=== PATIENT | female | born 1990 | race Caucasian/White ===

== ENCOUNTER 2018-02-04 01:15 | Emergency (ER) | payer BC, OTHER ==
[2018-02-04 01:25] VITALS: RESP 18
[2018-02-04] MEDS ORDERED: SULFAMETH-TMP DS STARTER PACK 2 TAB BTL PO STA (01:39)
[2018-02-04] MEDS ORDERED: CEPHALEXIN 500MG STARTER PACK 4 CAP BTL PO STA (01:39)
[2018-02-04] MEDS ORDERED: ACET/COD 300 MG/30 MG STARTER PACK 6 TAB BTL PO STA (01:39)
--- NOTE | 2018-02-04 02:18 | ED ---
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 She reports that it hurts to sit and the area of erythema is spreading on her thigh. She denies history of resistent bacterial infections. Patient has not been shaving her thigh, but has shaved her axilla. Denies fevers, chills, chest pain, SOB. - Related Data Home Medications Medication Instructions Recorded Confirmed ALPRAZolam [Xanax] 0.25 mg PO Q8HR PRN 12/05/14 04/14/15 Previous Rx's Medication Instructions Recorded Acetaminophen-Codeine 300-30mg 1 tab PO Q4H PRN #15 tablet 02/04/18 [Tylenol #3] Cephalexin [Keflex] 500 mg PO Q6HR #40 cap 02/04/18 Ibuprofen [Motrin] 600 mg PO Q8HR PRN #20 tab 02/04/18 Sulfamethox-Tmp 800-160Mg [Bactrim 2 tab PO Q12HR #40 tab 02/04/18 DS 800-160 mg] Allergies Allergy/AdvReac Type Severity Reaction Status Date / Time No Known Allergies Allergy Verified 04/14/15 02:04 Review of Systems ROS Statement: Those systems with pertinent positive or pertinent negative responses have been documented in the HPI. ROS Other: All systems not noted in ROS Statement are negative. Past Medical History Past Medical History: No Reported History Additional Past Medical History / Comment(s): MULT MOLLUSCUM CONTAGIOSUM TO VAGINAL AREA. NO MENSES SINCE CHILDBIRTH, DEPO INJ 02/2013. History of Any Multi-Drug Resistant Organisms: None Reported Past Surgical History: Adenoidectomy, Cholecystectomy, Orthopedic Surgery, Tonsillectomy Additional Past Surgical History / Comment(s): BMT; EXC LT BUNION; WISDOM TEETH REMOVED; COLONOSCOPY/EGD Past Anesthesia/Blood Transfusion Reactions: No Reported Reaction Past Psychological History: Anxiety, Depression Smoking Status: Former smoker Past Alcohol Use History: None Reported Past Drug Use History: None Reported General Exam - General Exam Comments Initial Comments: This is a 28 year old female, no distress. Limitations: no limitations General appearance: alert, in no apparent distress Head exam: Present: atraumatic, normocephalic, normal inspection Eye exam: Present: normal appearance, PERRL, EOMI. Absent: scleral icterus, conjunctival injection, periorbital swelling ENT exam: Present: normal exam, mucous membranes moist Neck exam: Present: normal inspection. Absent: tenderness, meningismus, lymphadenopathy Respiratory exam: Present: normal lung sounds bilaterally. Absent: respiratory distress, wheezes, rales, rhonchi, stridor Cardiovascular Exam: Present: regular rate, normal rhythm, normal heart sounds. Absent: systolic murmur, diastolic murmur, rubs, gallop, clicks Neurological exam: Present: alert, oriented X3, CN II-XII intact Psychiatric exam: Present: normal affect, normal mood Skin exam: Present: warm, dry, intact, normal color, erythema (Patient has a 10 cm area of cellulitis over posterior thigh with central swelling consistent with abscess. Patient has 3 cm area of erythema and swelling in right axilla. ) . Absent: rash Course Vital Signs 02/04/18 02/04/18 01:18 02:32 Temperature 99.0 F 98.7 F Pulse Rate 96 86 Respiratory 18 18 Rate Blood Pressure 124/65 116/57 O2 Sat by Pulse 100 98 Oximetry Procedures - Incision & Drainage Time Out Performed?: Yes Indication: abscess Site: lower extremity (right posterior thigh. 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 She reports that it hurts to sit and the area of erythema is spreading on her thigh. Patient has evdiecn of right thigh cellulitis with abscess, and right axilla abscess. I was able to I and D both axilla and thigh. Cultures obtained from each site. I was able to pack thigh abscess as the wound was deep. Will start on keflex and bactrim. Discussed packing needs to be changed in 2 days with referral to surgeon. All questions answered and return parameters discussed. Disposition Clinical Impression: Abscess of right axilla, Abscess of right thigh Disposition: HOME SELF-CARE Condition: Good Instructions: Abscess (ED) Additional Instructions: Patient advised to do warm compresses or soaks over the area. Patient should follow-up with primary care provider or the urgent care or primary care provider 's office in 2 days to have the packing reassessed. Further complications arise is worsening redness or swelling despite antibiotics patient should return to the emergency department. Patient is to have the packing removed and likely replaced in 2 days. Return to the emergency department if any alarming signs or symptoms occur. Prescriptions: Acetaminophen-Codeine 300-30mg [Tylenol #3] 1 tab PO Q4H PRN #15 tablet PRN Reason: Pain Cephalexin [Keflex] 500 mg PO Q6HR #40 cap Ibuprofen [Motrin] 600 mg PO Q8HR PRN #20 tab PRN Reason: Pain Sulfamethox-Tmp 800-160Mg [Bactrim DS 800-160 mg] 2 tab PO Q12HR #40 tab Referrals: Isidro Corcoran DO [Primary Care Provider] - 1-2 days Antonio Gonzalez MD [Medical Doctor] - 1-2 days Time of Disposition: 02:16
[2018-02-04 02:34] VITALS: BP 116/57; PULSE 86; TEMP 98.7
== END 2018-02-04 02:34 | disposition home or self-care (01) ==
LOC: EC 01:15
DX: L02.415 Cutaneous abscess of right lower limb (principal); L02.411 Cutaneous abscess of right axilla; Z87.891 Personal history of nicotine dependence
CPT/HCPCS: 10061; 87070; 87077; 87186; 87205; 99285

== ENCOUNTER 2018-02-06 16:10 | Emergency (ER) | payer OTHER ==
--- NOTE | 2018-02-06 17:22 | ED ---
General Adult HPI - General Chief complaint: Skin/Abscess/Foreign Body Stated complaint: Wound on leg Time Seen by Provider: 02/06/18 17:18 Source: patient, RN notes reviewed Mode of arrival: ambulatory Limitations: no limitations - History of Present Illness Initial comments: 28 year old female presents to the emergency department for a chief complaint of abscess in the right dorsal thigh. Patient states she presented to the emergency department about 3 days ago and had it drained and packed. She was started on Keflex and Bactrim. Patient then presented to primary care provider yesterday who repacked the wound. Patient states that today she was pulling off the gauze when it's night on the packing and pulled out about 3 cm of packing. Patient states it was extremely painful to pack and she does not want to have to repack it if she doesn't have to. Patient states she is going to primary care tomorrow to have a repacked at that time and would like to wait until then to repack it. Patient is still taking antibiotics as directed and states the infection and redness is receding. Patient denies any recent spreading of infection. Patient states she is also getting nauseous from the Keflex and wonders if there is anything she can have that would take alleviate her nausea. Patient denies any fevers or chills. She denies any pain in the hip or knee of the right extremity. - Related Data Home Medications Medication Instructions Recorded Confirmed ALPRAZolam [Xanax] 0.25 mg PO Q8HR PRN 12/05/14 04/14/15 Previous Rx's Medication Instructions Recorded Acetaminophen-Codeine 300-30mg 1 tab PO Q4H PRN #15 tablet 02/04/18 [Tylenol #3] Cephalexin [Keflex] 500 mg PO Q6HR #40 cap 02/04/18 Ibuprofen [Motrin] 600 mg PO Q8HR PRN #20 tab 02/04/18 Sulfamethox-Tmp 800-160Mg [Bactrim 2 tab PO Q12HR #40 tab 02/04/18 DS 800-160 mg] Ondansetron HCl [Zofran] 4 mg PO Q8HR PRN #14 tablet 02/06/18 Allergies Allergy/AdvReac Type Severity Reaction Status Date / Time No Known Allergies Allergy Verified 04/14/15 02:04 Review of Systems ROS Statement: Those systems with pertinent positive or pertinent negative responses have been documented in the HPI. ROS Other: All systems not noted in ROS Statement are negative. Past Medical History Past Medical History: No Reported History Additional Past Medical History / Comment(s): MULT MOLLUSCUM CONTAGIOSUM TO VAGINAL AREA. NO MENSES SINCE CHILDBIRTH, DEPO INJ 02/2013. History of Any Multi-Drug Resistant Organisms: MRSA Date of last positivie culture/infection: 02/04/18 MDRO Source:: thigh,axillary Past Surgical History: Adenoidectomy, Cholecystectomy, Orthopedic Surgery, Tonsillectomy Additional Past Surgical History / Comment(s): BMT; EXC LT BUNION; WISDOM TEETH REMOVED; COLONOSCOPY/EGD Past Anesthesia/Blood Transfusion Reactions: No Reported Reaction Past Psychological History: Anxiety, Depression Smoking Status: Former smoker Past Alcohol Use History: None Reported Past Drug Use History: None Reported General Exam Limitations: no limitations Respiratory exam: Present: normal lung sounds bilaterally. Absent: respiratory distress, wheezes, rales, rhonchi, stridor Cardiovascular Exam: Present: regular rate, normal rhythm, normal heart sounds. Absent: systolic murmur, diastolic murmur, rubs, gallop, clicks Extremities exam: Present: full ROM, tenderness (Tenderness to the abscess on the right dorsal thigh), normal capillary refill (Cap refill less than 2 seconds in lower extremities bilaterally.), other (By mouth pulse 2+ in the lower extremities bilaterally. Abscess appears to be draining. There is about 3 cm of packing hanging out of the wound. Patient has a black marker iroquois around where the redness previously wasn't has greatly reduced in size. There is no streaking redness up the leg or down the leg.). Absent: pedal edema, joint swelling, calf tenderness Course Vital Signs 02/06/18 02/06/18 16:33 17:28 Temperature 98.6 F 97.9 F Pulse Rate 99 66 Respiratory 18 16 Rate Blood Pressure 131/61 125/69 O2 Sat by Pulse 99 98 Oximetry Medical Decision Making - Medical Decision Making 28-year-old female says the emergency department for chief complaint of abscess. She had it drained about 4 days ago in the emergency department and packed. Patient followed up with primary care provider Dr. Smith who repacked it yesterday. I offered patient to remove the packing today and repacking in the emergency department. Patient states it was extremely painful to pack and she does not want repacked today as she is going back to primary care to have it repacked tomorrow. She would like to get 2 days out of the packing inside of 1 as her primary care provider told her she could do. I offered patient to either remove the packing or just trim the excess 2-3 cm of packing. Patient opted to have the packing trimmed at this point. She did not want the packing removed as she said it will be painful. Patient denies noticing any increased swelling or spreading redness. There is a iroquois around where the redness was previously and the redness is greatly reduced. Patient states she would like to follow up with her primary care provider for this problem. Patient is to return to the emergency Department if she has any worsening symptoms or increased infection. She is to return if she has high fevers. Patient is to continue taking antibiotics. She was prescribed Zofran because they're making her nauseous. Disposition Clinical Impression: Abscess Disposition: HOME SELF-CARE Condition: Good Instructions: Abscess (ED) Additional Instructions: Please continue antibiotics previously prescribed. Please follow up with primary care provider either tomorrow or the next day. Please return to the emergency department if you notice spreading redness or worsening infection. Prescriptions: Ondansetron HCl [Zofran] 4 mg PO Q8HR PRN #14 tablet PRN Reason: Nausea Referrals: Isidro Corcoran DO [Primary Care Provider] - 1-2 days Time of Disposition: 17:21
[2018-02-06 17:30] VITALS: BP 125/69; PULSE 66; RESP 16; TEMP 97.9
== END 2018-02-06 17:28 | disposition home or self-care (01) ==
LOC: EC 16:10
DX: L02.415 Cutaneous abscess of right lower limb (principal); Z86.14 Personal history of Methicillin resistant Staphylococcus aureus infection; Z87.891 Personal history of nicotine dependence
CPT/HCPCS: 99282

== ENCOUNTER 2018-06-08 02:43 | Emergency (ER) | payer OTHER ==
[2018-06-08 03:05] VITALS: BP 111/73; PULSE 70; RESP 18; TEMP 98.4
[2018-06-08] MEDS ORDERED: KETOROLAC 30 MG/ML 1 ML VIAL IM STA (03:33)
[2018-06-08] MEDS ORDERED: CEPHALEXIN 500MG STARTER PACK 4 CAP BTL PO STA (03:33)
[2018-06-08] MEDS ORDERED: SULFAMETH-TMP DS STARTER PACK 2 TAB BTL PO STA (03:33)
[2018-06-08] MEDS ORDERED: ACET/COD 300 MG/30 MG STARTER PACK 6 TAB BTL PO STA (03:33)
--- NOTE | 2018-06-08 03:33 | ED ---
Skin/Abscess/FB HPI - General Chief complaint: Skin/Abscess/Foreign Body Stated complaint: abscess on arm Time Seen by Provider: 06/08/18 03:23 Source: patient Mode of arrival: ambulatory Limitations: no limitations - History of Present Illness Initial comments: 28-year-old female patient presents to emergency department today for evaluation of abscess to the left axilla. Patient states that the abscess started to develop approximately 2 weeks ago. Patient states that over the last couple of days the area has become much more painful, swollen, and started to become red around the site. Patient states that she does have a history of abscess with positive MRSA culture. Patient denies any fevers, chills, nausea, vomiting. Denies any difficulty with range of motion to the shoulder or elbow. Patient denies any alcohol or drug use. Denies any significant past medical history. Patient denies any recent rash, shortness breath, chest pain, abdominal pain, diarrhea, constipation, back pain, numbness, tingling, dizziness , weakness, hematuria, dysuria, urinary urgency, urinary frequency, headache, visual changes, or any other complaints. - Related Data Previous Rx's Medication Instructions Recorded Cephalexin [Keflex] 500 mg PO Q6H #40 cap 06/08/18 Ibuprofen [Motrin] 600 mg PO Q8HR PRN #30 tab 06/08/18 Sulfamethoxazole/Trimethoprim 1 each PO BID #20 tablet 06/08/18 [Bactrim DS 800-160 mg] Allergies Allergy/AdvReac Type Severity Reaction Status Date / Time No Known Allergies Allergy Verified 03/07/18 23:21 Review of Systems ROS Statement: Those systems with pertinent positive or pertinent negative responses have been documented in the HPI. ROS Other: All systems not noted in ROS Statement are negative. Past Medical History Past Medical History: No Reported History Additional Past Medical History / Comment(s): MULT MOLLUSCUM CONTAGIOSUM TO VAGINAL AREA. NO MENSES SINCE CHILDBIRTH, DEPO INJ 02/2013. History of Any Multi-Drug Resistant Organisms: MRSA Date of last positivie culture/infection: 02/04/18 MDRO Source:: thigh,axillary Past Surgical History: Adenoidectomy, Cholecystectomy, Orthopedic Surgery, Tonsillectomy Additional Past Surgical History / Comment(s): BMT; EXC LT BUNION; WISDOM TEETH REMOVED; COLONOSCOPY/EGD Past Anesthesia/Blood Transfusion Reactions: No Reported Reaction Past Psychological History: Anxiety, Depression Smoking Status: Former smoker Past Alcohol Use History: None Reported Past Drug Use History: None Reported General Exam Limitations: no limitations General appearance: alert, in no apparent distress, other (This is a well- developed, well-nourished adult female patient in no acute distress. Vital signs upon presentation are temperature 98.4F, pulse 70, respirations 18, blood pressure 111/73, pulse ox 99% on room air.) Eye exam: Present: normal appearance, PERRL, EOMI. Absent: scleral icterus, conjunctival injection, periorbital swelling ENT exam: Present: normal exam, normal oropharynx, mucous membranes moist Respiratory exam: Present: normal lung sounds bilaterally. Absent: respiratory distress, wheezes, rales, rhonchi, stridor Cardiovascular Exam: Present: regular rate, normal rhythm, normal heart sounds. Absent: systolic murmur, diastolic murmur, rubs, gallop, clicks Extremities exam: Present: full ROM, tenderness (Left axillary), normal capillary refill, other (Patient has 2cm x 2cm abscess to the left axilla. There is small area of fluctuance with surrounding induration. There is central opening with drainage of purulent bloody drainage. There is surrounding cellulitis extending up the medial aspect of the upper arm. ). Absent: normal inspection, pedal edema, joint swelling, calf tenderness Neurological exam: Present: alert, oriented X3, CN II-XII intact Psychiatric exam: Present: normal affect, normal mood Skin exam: Present: warm, dry, intact, normal color. Absent: rash Course Vital Signs 06/08/18 03:02 Temperature 98.4 F Pulse Rate 70 Respiratory 18 Rate Blood Pressure 111/73 O2 Sat by Pulse 99 Oximetry Medical Decision Making - Medical Decision Making 28-year-old female patient presents to the emergency department today for evaluation of abscess to the left axillary region. Physical examination did reveal a 2 cm x 2 cm abscess that is draining purulent, bloody drainage. She did squeeze out a large amount. Fluid. Patient tolerated this well. Culture has been sent. She will be placed on Bactrim and Keflex. She is given ibuprofen for pain control. She is given a starter pack Tylenol codeine. She is instructed to apply warm compresses 20 minutes at a time as often as possible. She is instructed to follow-up with her primary care physician for recheck of the abscess in 1-2 days. Return parameters were discussed in detail. She verbalizes understanding and agreed with this plan. Disposition Clinical Impression: Abscess of left axilla Disposition: HOME SELF-CARE Condition: Good Instructions: Abscess (ED) Additional Instructions: Apply warm compresses, 20 minutes per hour. Complete antibiotic prescription in full. Take other medications as directed. Return here immediately for any new, worsening, or concerning symptoms. Prescriptions: Cephalexin [Keflex] 500 mg PO Q6H #40 cap Ibuprofen [Motrin] 600 mg PO Q8HR PRN #30 tab PRN Reason: Pain Sulfamethoxazole/Trimethoprim [Bactrim DS 800-160 mg] 1 each PO BID #20 tablet Is patient prescribed a controlled substance at d/c from ED?: No Referrals: Isidro Corcoran DO [Primary Care Provider] - 1-2 days Time of Disposition: 03:33
== END 2018-06-08 04:08 | disposition home or self-care (01) ==
LOC: EC 02:43
DX: L02.412 Cutaneous abscess of left axilla (principal); Z86.14 Personal history of Methicillin resistant Staphylococcus aureus infection; Z87.891 Personal history of nicotine dependence
CPT/HCPCS: 87070; 87205; 99283; 96372; J1885; 87077; 87186

== ENCOUNTER 2020-05-16 18:32 | Outpatient (CLI) | payer MEDICAID ==
[2020-05-16 19:25] VITALS: BP 119/66; PULSE 96; RESP 16; TEMP 97.2
--- NOTE | 2020-06-06 12:38 | P.MSEPDOC ---
Presenting Problems - Arrival Data Date of Arrival on Unit: 05/16/20 Time of Arrival on Unit: 18:33 Mode of Transport: Ambulatory - Complaint OB-Reason for Admission/Chief Complaint: Other Comment: cramping, spotting x1, decreased fm Medical History - Information : 2 Para: 1 Term: 0 : 0 Abortions: Spontaneous or Elective: 0 Number of Living Children: 1 - Gestational Age Gestational Age by TRINIDAD (wks/days): 27 Weeks and 5 Days Review of Systems - Review of Systems Constitutional: No problems Breast: No problems ENT: No problems Cardiovascular: No problems Respiratory: No problems Gastrointestinal: No problems Genitourinary: No problems Musculoskeletal: No problems Neurological: No problems Skin: No problems Vital Signs - Temperature Temperature: 97.2 F Temperature Source: Temporal Artery Scan - Pulse Right Apical Pulse Rate: 96 Pulse Assessment Method: Automatic Cuff - Respirations Respiratory Rate: 16 Oxygen Delivery Method: Room Air - Blood Pressure Right Arm Blood Pressure: 119/66 Blood Pressure Mean: 83 Blood Pressure Source: Automatic Cuff Medical Screen Scoring (Pre) - Cervical Exam Dilation: 0 cm = 0 Membranes: Intact - Uterine Contractions Frequency: N/A Duration: N/A Intensity: N/A - Maternal Vital Signs Maternal Temperature: N/A Maternal Blood Pressure: N/A Signs of Preeclampsia: N/A Maternal Respirations: N/A - Maternal Trauma Maternal Trauma: N/A - Assessment - Baby A Baseline FHR: 135 Heart Rate - NICHD Category: Category I (Normal) = 0 NST: Reactive Position: N/A Station: N/A - Total Score - Baby A Total Score - Baby A: 0 - Total Score - Baby B Total Score - Baby B: 0 - Total Score - Baby C Total Score - Baby C: 0 - Level of Risk - Baby A Level of Risk - Baby A: Low (0-5) - Level of Risk - Baby B Level of Risk - Baby B: Low (0-5) - Level of Risk - Baby C Level of Risk - Baby C: Low (0-5) Physician Notification (Pre) - Physician Notified Physician Notified Date: 05/16/20 Physician Notified Time: 18:49 New Order Received: Yes - Notification Comment Comment: reported visit. order for spec/vag exam, no blood noted, reactive nst, no contractions, pt may be dc'd home Disposition - Disposition OB Disposition: Discharge to home Discharge Date: 05/16/20 Discharge Time: 19:15 I agree with the RN Medical Screening Exam: Yes Risk & Benefit of care provided described in d/c instruction: Yes Diagnosis: DECREASED MOVEMENTS, SECOND TRIMESTER, FETUS 1
== END 2020-05-16 19:15 | disposition home or self-care (01) ==
LOC: FBPOP 18:32
PROVIDERS: ATTEND Obstetrics & Gynecology Obstetrics
DX: O36.8120 Decreased fetal movements, second trimester, not applicable or unspecified (principal); Z3A.27 27 weeks gestation of pregnancy
CPT/HCPCS: 99213

== ENCOUNTER 2020-06-11 22:05 | Outpatient (CLI) | payer MEDICAID ==
[2020-06-12 00:13] VITALS: BP 116/57; PULSE 87; RESP 16; TEMP 97.6
--- NOTE | 2020-06-30 08:36 | P.MSEPDOC ---
Presenting Problems - Arrival Data Date of Arrival on Unit: 06/12/20 Time of Arrival on Unit: 22:04 Mode of Transport: Ambulatory - Complaint OB-Reason for Admission/Chief Complaint: Pain Comment: Patient presents to triage with complaint of constant pain in the right groin,. unrelieved by position changes. Patient also states she has not felt the baby move since. 7am. Medical History - Information : 2 Para: 1 Term: 1 : 0 Abortions: Spontaneous or Elective: 0 Number of Living Children: 1 - Gestational Age Gestational Age by TRINIDAD (wks/days): 31 Weeks and 4 Days Review of Systems - Review of Systems Constitutional: No problems Breast: No problems ENT: No problems Cardiovascular: No problems Respiratory: No problems Gastrointestinal: No problems Genitourinary: No problems Musculoskeletal: No problems Neurological: No problems Skin: No problems Vital Signs - Temperature Temperature: 97.6 F Temperature Source: Temporal Artery Scan - Pulse Right Brachial Pulse Rate: 87 Pulse Assessment Method: Automatic Cuff - Respirations Respiratory Rate: 16 Oxygen Delivery Method: Room Air - Blood Pressure Right Arm Blood Pressure: 116/57 Blood Pressure Mean: 76 Blood Pressure Source: Automatic Cuff Medical Screen Scoring (Pre) - Cervical Exam Dilation: Exam Deferred Effacement: Exam Deferred Membranes: Intact - Uterine Contractions Frequency: N/A Duration: N/A Intensity: N/A - Maternal Vital Signs Maternal Temperature: N/A Maternal Blood Pressure: N/A Signs of Preeclampsia: N/A Maternal Respirations: N/A - Maternal Trauma Maternal Trauma: N/A - Assessment - Baby A Baseline FHR: 135 Heart Rate - NICHD Category: Category I (Normal) = 0 NST: Reactive Position: N/A Station: N/A - Total Score - Baby A Total Score - Baby A: 0 - Total Score - Baby B Total Score - Baby B: 0 - Total Score - Baby C Total Score - Baby C: 0 - Level of Risk - Baby A Level of Risk - Baby A: Low (0-5) - Level of Risk - Baby B Level of Risk - Baby B: Low (0-5) - Level of Risk - Baby C Level of Risk - Baby C: Low (0-5) Physician Notification (Pre) - Physician Notified Physician Notified Date: 06/12/20 Physician Notified Time: 22:40 New Order Received: Yes - Notification Comment Comment: Dr. Bell at bedside. RN reported patients symptoms and reviewed . heart tone tracing. palpated patients groin and stated that the patient was having. pelvic bone pain that is normal during , especially during the third trimester. stated patient could use hot or cold packs to alleviate the pain. RN brought patient. a heat pack to try. Patient verbalized understanding. Patient to be discharged per Dr. Bell. Disposition - Disposition OB Disposition: Discharge to home Discharge Date: 06/12/20 Discharge Time: 23:10 I agree with the RN Medical Screening Exam: Yes Risk & Benefit of care provided described in d/c instruction: Yes Diagnosis: pubic symphasis separation in pregancy
== END 2020-06-11 23:10 | disposition home or self-care (01) ==
LOC: FBPOP 22:05
PROVIDERS: ATTEND Obstetrics & Gynecology
DX: O71.6 Obstetric damage to pelvic joints and ligaments (principal); Z3A.31 31 weeks gestation of pregnancy
CPT/HCPCS: 59025; 99213

== ENCOUNTER 2020-07-26 02:50 | Outpatient (CLI) | payer MEDICAID ==
[2020-07-26 04:51] VITALS: BP 123/65; PULSE 77; RESP 16; TEMP 97.2
--- NOTE | 2020-07-27 09:02 | P.MSEPDOC ---
Presenting Problems - Arrival Data Date of Arrival on Unit: 07/26/20 Time of Arrival on Unit: 02:50 Mode of Transport: Wheelchair - Complaint OB-Reason for Admission/Chief Complaint: Possible Onset of Labor, Rule Out SROM, Other Comment: L leg pain Medical History - Information : 2 Para: 1 Term: 1 : 0 Abortions: Spontaneous or Elective: 0 Number of Living Children: 1 - Gestational Age Gestational Age by TRINIDAD (wks/days): 37 Weeks and 6 Days Review of Systems - Review of Systems Constitutional: No problems Breast: No problems ENT: No problems Cardiovascular: No problems Respiratory: No problems Gastrointestinal: No problems Genitourinary: No problems Musculoskeletal: No problems Neurological: No problems Skin: No problems Comment: L leg pain Vital Signs - Temperature Temperature: 97.2 F Temperature Source: Temporal Artery Scan - Pulse Right Pulse Rate: 77 Pulse Assessment Method: Automatic Cuff - Respirations Respiratory Rate: 16 Oxygen Delivery Method: Room Air O2 Sat by Pulse Oximetry: 99 - Blood Pressure Right Arm Blood Pressure: 123/65 Blood Pressure Mean: 84 Medical Screen Scoring (Pre) - Cervical Exam Dilation: 1-3 cm = 1 Membranes: Intact - Uterine Contractions Frequency: > 5 minutes apart = 1 Duration: > 40 seconds = 2 Intensity: N/A - Maternal Vital Signs Maternal Temperature: N/A Maternal Blood Pressure: N/A Signs of Preeclampsia: N/A Maternal Respirations: N/A - Maternal Trauma Maternal Trauma: N/A - Assessment - Baby A Baseline FHR: 135 Heart Rate - NICHD Category: Category I (Normal) = 0 NST: Reactive Position: N/A Station: N/A - Total Score - Baby A Total Score - Baby A: 4 - Total Score - Baby B Total Score - Baby B: 4 - Total Score - Baby C Total Score - Baby C: 4 - Level of Risk - Baby A Level of Risk - Baby A: Low (0-5) - Level of Risk - Baby B Level of Risk - Baby B: Low (0-5) - Level of Risk - Baby C Level of Risk - Baby C: Low (0-5) Physician Notification (Pre) - Physician Notified Physician Notified Date: 07/26/20 Physician Notified Time: 04:07 New Order Received: Yes - Notification Comment Comment: DC home with follow up in office this afternoon, see OBIX Disposition - Disposition OB Disposition: Physician follow up in office, Discharge to home, Written follow up instructions reviewed Discharge Date: 07/26/20 Discharge Time: 04:15 I agree with the RN Medical Screening Exam: Yes Risk & Benefit of care provided described in d/c instruction: Yes Diagnosis: FALSE LABOR BEFORE 37 COMPLETED WEEKS OF GEST, THIRD TRI
== END 2020-07-26 04:15 | disposition home or self-care (01) ==
LOC: FBPOP 02:50
PROVIDERS: ATTEND Obstetrics & Gynecology
DX: O47.03 False labor before 37 completed weeks of gestation, third trimester (principal); Z3A.37 37 weeks gestation of pregnancy
CPT/HCPCS: 59025; 84112; 99213

== ENCOUNTER → 2020-07-26 | Outpatient (CLI) | payer MEDICAID ==
--- NOTE | 2020-07-26 16:14 | US ---
EXAMINATION TYPE: US venous doppler duplex LE LT DATE OF EXAM: 07/26/2020 3:56 PM COMPARISON: NONE CLINICAL HISTORY: LEFT LEG M79.662. Pain left leg for 3 days. patient 38 weeks SIDE PERFORMED: left TECHNIQUE: The lower extremity deep venous system is examined utilizing real time linear array sonog viviane with graded compression, doppler sonography and color-flow sonography. VESSELS IMAGED: External Iliac Vein (EIV) Common Femoral Vein Deep Femoral Vein Greater Saphenous Vein * Femoral Vein Popliteal Vein Small Saphenous Vein * Proximal Calf Veins (* superficial vessels) Left Leg: No evidence of DVT. Rouleaux flow noted IMPRESSION: No evidence for DVT at this time.
== END | disposition home or self-care (01) ==
LOC: RADUSWWP 15:36
PROVIDERS: ATTEND Obstetrics & Gynecology
DX: M79.662 Pain in left lower leg (principal)

== ENCOUNTER 2020-08-17 06:00 | Inpatient (IN) | payer MEDICAID ==
[2020-08-17] MEDS ORDERED: OXYTOCIN 10 UNIT/ML 1 ML VIAL IM PRN (06:14)
[2020-08-17] MEDS ORDERED: TERBUTALINE 1 MG/ML VIAL SQ PRN (06:14)
[2020-08-17] MEDS ORDERED: CARBOPROST TROMETHAMINE 250 MCG/ML 1 ML AMP IM PRN (06:14)
[2020-08-17] MEDS ORDERED: LIDOCAINE 0.5% (PF) 5 MG/ML (50 ML SDV) SQ PRN (06:14)
[2020-08-17] MEDS ORDERED: METHYLERGONOVINE 0.2 MG/ML 1 ML AMP IM PRN (06:14)
[2020-08-17] MEDS ORDERED: LACTATED RINGERS 1,000 ML IV SCH (06:15)
[2020-08-17] MEDS ORDERED: OXYTOCIN 30 UNITS/500 ML NS 30 UNIT in SALINE 1 500ML.BAG IV SCH (06:15)
[2020-08-17] MEDS: LACTATED RINGERS 1,000 ML IV SCH ×2 (06:26→07:30)
--- NOTE | 2020-08-17 06:38 | P.HPOB ---
History of Present Illness H&P Date: 08/17/20 Chief Complaint: Strong regular uterine contractions since midnight This is a 30-year-old white female 2 para 1001 EDC 08/10/2020 at 41 weeks gestation. Patient was initially scheduled for induction today, but came in with spontaneous strong contractions since midnight. She denies fluid leakage or vaginal bleeding. Fetus is been active throughout the . history significant for blood type O positive, rubella status immune. Group B strep cultures negative. HIV testing, gonorrhea and chlamydia cultures, urine culture, hepatitis B surface antigen all negative. One-hour Glucola 97. Past medical history is significant for anxiety and depression. Past surgical history adenoidectomy, bunionectomy, cholecystectomy, colposcopy, wisdom teeth extracted. ALLERGIES none known. Current medications vitamins daily. Family history significant for neuropathy. Social history patient is single, boyfriend is present and involved, she denies alcohol tobacco or drug use. On exam patient is 5 foot 8 inches, 180 pounds, blood pressure 126/71. Vital signs are stable and she is afebrile. General physical exam is within normal limits. Uterine contractions are occurring every 3 minutes apart of moderate intensity. Cervix is 4 cm dilated, 80% effaced, -1 station, vertex presentation. Artificial amniorrhexis reveals scant clear fluid. heart rate is consistent with reactive NST. Impression: 41 week intrauterine , active spontaneous labor. All signs reassuring. Plan: Patient is requesting epidural and this will be placed per her request. Close maternal and surveillance. Anticipate normal spontaneous vaginal delivery. Review of Systems Constitutional: Reports as per HPI Past Medical History Past Medical History: No Reported History Additional Past Medical History / Comment(s): MULT MOLLUSCUM CONTAGIOSUM TO VAGINAL AREA. NO MENSES SINCE CHILDBIRTH, DEPO INJ 02/2013. History of Any Multi-Drug Resistant Organisms: MRSA Date of last positivie culture/infection: 06/08/17 MDRO Source:: AXILLA bilateral and right thigh Past Surgical History: Adenoidectomy, Cholecystectomy, Orthopedic Surgery, Tonsillectomy Additional Past Surgical History / Comment(s): BMT; EXC LT BUNION; WISDOM TEETH REMOVED; COLONOSCOPY/EGD Past Anesthesia/Blood Transfusion Reactions: No Reported Reaction Smoking Status: Never smoker Medications and Allergies Home Medications Medication Instructions Recorded Confirmed Type Cyanocobalamin (Vitamin B-12) 1,000 mcg PO DAILY 05/16/20 08/17/20 History [Vitamin B-12] Pnv No.95/Ferrous Fum/Folic AC 1 tab PO DAILY 05/16/20 08/17/20 History [ Multivitamin Tablet] Allergies Allergy/AdvReac Type Severity Reaction Status Date / Time No Known Allergies Allergy Verified 08/17/20 06:14 Exam Intake and Output 08/16/20 08/16/20 08/17/20 14:59 22:59 06:59 Other: Weight 81.647 kg See dictation under HPI placed Assessment and Plan Assessment: 41 week intrauterine , active spontaneous labor. All signs reassuring. Plan: Continue close maternal and surveillance. Epidural will be placed per her request. Anticipate normal spontaneous vaginal delivery. Time with Patient: Less than 30
[2020-08-17 07:07] LABS: Basophils % (A) 0 %; Eosinophils # (A) 0.1 k/uL (0-0.7); Eosinophils % (A) 1 %; HCT 40.3 % (34.0-46.0); HGB 13.7 gm/dL (11.4-16.0); Lymphocytes # (A) 2.8 k/uL (1.0-4.8); Lymphocytes % (A) 17 %; MCH 31.3 pg (25.0-35.0); MCHC 33.9 g/dL (31.0-37.0); MCV 92.3 fL (80.0-100.0); Mean Platelet Volume 8.6; Monocytes # (A) 0.8 k/uL (0-1.0); Monocytes % (A) 5 %; Neutrophils # (A) 12.3 k/uL (1.3-7.7); Neutrophils % (A) 76 %; Platelet Count 193 k/uL (150-450); RBC 4.37 m/uL (3.80-5.40); WBC 16.2 k/uL (3.8-10.6)
[2020-08-17] MEDS ORDERED: diphenhydrAMINE 25 MG CAP PO PRN (08:58)
[2020-08-17] MEDS ORDERED: SIMETHICONE 80 MG CHEWABLE PO PRN (08:58)
[2020-08-17] MEDS ORDERED: diphenhydrAMINE 50 MG/ML 1 ML VIAL IVP PRN ×2 (08:58)
[2020-08-17] MEDS ORDERED: HYDROCORTISONE 2.5% RECTAL CREAM 30 GM TUBE RECTAL PRN (08:58)
[2020-08-17] MEDS ORDERED: BENZOCAINE/MENTHOL SPRAY 1 GM/SPRAY AEROSOL TOPICAL PRN (08:58)
[2020-08-17] MEDS ORDERED: ZOLPIDEM 5 MG TAB PO PRN (08:58)
[2020-08-17] MEDS ORDERED: diphenhydrAMINE 50 MG CAP PO PRN (08:58)
[2020-08-17] MEDS ORDERED: LANOLIN CREAM 5 GM TUBE TOPICAL PRN (08:58)
--- NOTE | 2020-08-17 08:58 | P.PROBDLV ---
Vaginal Delivery Note - . Vaginal Delivery Note: This is a 30-year-old white female 2 para 1001 EDC 08/10/2041 weeks gestation. Patient presented in spontaneous active labor. She was scheduled for induction this morning as well. Rubella status immune, blood type O positive, group B strep cultures negative. Please see dictated history and physical for details. Artificial amniorrhexis revealed clear fluid. Epidural was placed per her request. She quickly dilated at the bedside. There were variable decelerations noted at 9 cm dilatation, patient was encouraged to push and did so successfully. Perineal body was prepped and draped in usual sterile fashion. Infant's head delivered last anterior and restituted accordingly. There was a tight nuchal cord 2 that was reduced. The right or anterior shoulder was then delivered easily from underneath the pubic symphysis at which time the oropharynx, nasopharynx, and external nares were all bulb suctioned thoroughly. Patient was officially delivered of a liveborn male at 0844 hours. Umbilical cord was doubly clamped and ligated, he was handed to waiting nurses for evaluation where scores of 8 and 9 at one and 5 minutes respectively were given. Infant weighed 3535 g or 7 lbs. 13 oz. Placenta delivered spontaneously, it was inspected and noted to be intact with trivascular cord. There was terminal meconium noted. Careful inspection then of the cervix, vagina, perineum, periurethral, and perirectal areas revealed a small upper left labial minora laceration. This is reapproximated with a single [id number] suture of 3-0 repeat. Uterus is massaged. Total estimated blood loss 200 mL's. All sponge needle and enhancement counts are correct at the end of the procedure. Patient is requesting circumcision for her infant son.
[2020-08-17] MEDS ORDERED: OXYTOCIN 20 UNITS/1000 ML NS 1,000 ML IV SCH (09:00)
[2020-08-17] MEDS ORDERED: ROPIVACAINE 100 MG, fentaNYL (PF) 200 MCG in SODIUM CHLORIDE 0.9% 76 ML EPIDURAL ONE (11:12)
[2020-08-17 12:37] VITALS: RESP 16
[2020-08-17] MEDS: IBUPROFEN 600 MG TAB PO PRN (16:50)
[2020-08-17] MEDS: SENNOSIDES-DOCUSATE SODIUM 1 EACH TAB PO SCH (21:00)
[2020-08-17] MEDS: ACETAMINOPHEN TAB 325 MG TAB PO PRN (21:02)
[2020-08-18] MEDS: LACTATED RINGERS 1,000 ML IV SCH (01:37)
[2020-08-18] MEDS: IBUPROFEN 600 MG TAB PO PRN ×2 (02:06→07:42)
[2020-08-18] MEDS: SENNOSIDES-DOCUSATE SODIUM 1 EACH TAB PO SCH (07:42)
--- NOTE | 2020-08-18 08:04 | P.DS ---
Providers Date of admission: 08/17/20 06:03 Expected date of discharge: 08/18/20 Attending physician: Joseline Dejesus Primary care physician: Stated None Hospital Course: This is a 30-year-old white female 2 para 1001 EDC 08/10/2020 at 41 weeks gestation. Patient was initially scheduled for induction but presented in active spontaneous labor. is remarkable for blood type O positive, rubella status immune, group B strep cultures negative. Please see my dictated history and physical for details. Artificial amniorrhexis revealed clear fluid. Epidural was placed per her request. She went on to quickly deliver a liveborn male with scores of 8 and 9 at one and 5 minutes respectively. Infant weighed 7 lbs. 13 oz. or 3535 g. Estimate a blood loss 200 mL, small left labial laceration easily repaired. Please see dictated delivery note for details. There was a tight nuchal cord 2 noted as well. This morning the patient is doing well. She is voiding, inability, passing flatus without difficulty. Vital signs are stable and she is afebrile. Fundus is firm and in the midline, symmetric and 18 week size. Extremities are negative for edema. Winona is doing well, circumcision has been p erformed. Patient is judged to be in very good condition for discharge home. She will follow-up with me in the office in 6 weeks. I have reminded her no intercourse, tampons or douching. She will use [id number] Advil or Aleve, or Motrin as needed for pain. I've asked her to call me with any fevers shakes or chills, foul smelling or copious lochia, with the passage of large blood clots, with any pain not alleviated by [id number] products, or indeed with any concerns. will follow-up with performance improvement manager as per recommendations. Assessment: Doing well day #1 Patient Condition at Discharge: Good Plan - Discharge Summary Discharge Rx Participant: No New Discharge Prescriptions: No Action Pnv No.95/Ferrous Fum/Folic AC [ Multivitamin Tablet] 1 tab PO DAILY Cyanocobalamin (Vitamin B-12) [Vitamin B-12] 1,000 mcg PO DAILY Discharge Medication List Cyanocobalamin (Vitamin B-12) [Vitamin B-12] 1,000 mcg PO DAILY 05/16/20 [History] Pnv No.95/Ferrous Fum/Folic AC [ Multivitamin Tablet] 1 tab PO DAILY 05/16/20 [History] Follow up Appointment(s)/Referral(s): Joseline Dejesus MD [STAFF PHYSICIAN] - 6 Weeks Discharge Disposition: HOME SELF-CARE
[2020-08-18 08:09] LABS: Basophils % (A) 0 %; Eosinophils # (A) 0.1 k/uL (0-0.7); Eosinophils % (A) 1 %; HCT 37.1 % (34.0-46.0); Lymphocytes # (A) 2.3 k/uL (1.0-4.8); Lymphocytes % (A) 18 %; MCH 30.8 pg (25.0-35.0); MCHC 32.5 g/dL (31.0-37.0); MCV 94.9 fL (80.0-100.0); Mean Platelet Volume 8.2; Monocytes # (A) 0.6 k/uL (0-1.0); Monocytes % (A) 5 %; Neutrophils # (A) 9.7 k/uL (1.3-7.7); Neutrophils % (A) 75 %; Platelet Count 153 k/uL (150-450)
[2020-08-18 08:14] VITALS: BP 110/68; PULSE 62; TEMP 98.3
[2020-08-18] MEDS: ACETAMINOPHEN TAB 325 MG TAB PO PRN (10:15)
== END 2020-08-18 11:15 | disposition home or self-care (01) | DRG 807 ==
LOC: 4FBP 06:03
PROVIDERS: ADMIT Obstetrics & Gynecology; ATTEND Obstetrics & Gynecology
PROC: 3E0R3NZ Introduction of Analgesics, Hypnotics, Sedatives into Spinal Canal, Percutaneous Approach (ICD-10-PCS; principal; 2020-08-17)
PROC: 10E0XZZ Delivery of Products of Conception, External Approach (ICD-10-PCS; principal; 2020-08-17)
PROC: 0HQ9XZZ Repair Perineum Skin, External Approach (ICD-10-PCS; principal; 2020-08-17)
PROC: 00HU33Z Insertion of Infusion Device into Spinal Canal, Percutaneous Approach (ICD-10-PCS; principal; 2020-08-17)
PROC: 10907ZC Drainage of Amniotic Fluid, Therapeutic from Products of Conception, Via Natural or Artificial Opening (ICD-10-PCS; principal; 2020-08-17)
DX: O48.0 Post-term pregnancy (principal); Z37.0 Single live birth; O69.1XX0 Labor and delivery complicated by cord around neck, with compression, not applicable or unspecified; O70.0 First degree perineal laceration during delivery; O76 Abnormality in fetal heart rate and rhythm complicating labor and delivery; O77.0 Labor and delivery complicated by meconium in amniotic fluid; O99.344 Other mental disorders complicating childbirth; F41.9 Anxiety disorder, unspecified; F32.9 Major depressive disorder, single episode, unspecified; Z3A.41 41 weeks gestation of pregnancy; Z90.49 Acquired absence of other specified parts of digestive tract
CPT/HCPCS: 85025; 86850; 86900; 86901

== ENCOUNTER 2021-01-01 03:35 | Emergency (ER) | payer MEDICAID, OTHER ==
--- NOTE | 2021-01-01 04:04 | ED ---
Chest Pain HPI - General Chief Complaint: Chest Pain Stated Complaint: Chest pain Time Seen by Provider: 01/01/21 04:02 Source: patient Mode of arrival: ambulatory Limitations: no limitations - History of Present Illness MD Complaint: chest pain Onset/Timin -: hour(s) Onset: during rest Pain Location: left chest Pain Radiation: LUE Severity: moderate Quality: sharp Consistency: constant Improves With: nothing Worsens With: inspiration Treatments Prior to Arrival: none - Related Data Home Medications Medication Instructions Recorded Confirmed Cyanocobalamin (Vitamin B-12) 1,000 mcg PO DAILY 05/16/20 08/17/20 [Vitamin B-12] Pnv No.95/Ferrous Fum/Folic AC 1 tab PO DAILY 05/16/20 08/17/20 [ Multivitamin Tablet] Allergies Allergy/AdvReac Type Severity Reaction Status Date / Time No Known Allergies Allergy Verified 08/17/20 06:14 Review of Systems ROS Statement: Those systems with pertinent positive or pertinent negative responses have been documented in the HPI. ROS Other: All systems not noted in ROS Statement are negative. Constitutional: Denies: fever, chills Respiratory: Denies: cough, dyspnea, hemoptysis Cardiovascular: Reports: chest pain. Denies: palpitations, orthopnea, edema, syncope Gastrointestinal: Denies: abdominal pain, nausea, vomiting, diarrhea Genitourinary: Denies: dysuria, hematuria Musculoskeletal: Denies: back pain Skin: Denies: rash Neurological: Denies: headache, weakness, numbness EKG Findings - EKG Results: EKG: interpreted by MELANIE OLMOSL, sinus rhythm (Rate 82 bpm), normal axis, normal QRS, normal ST/T Past Medical History Past Medical History: No Reported History Additional Past Medical History / Comment(s): MULT MOLLUSCUM CONTAGIOSUM TO VAGINAL AREA. NO MENSES SINCE CHILDBIRTH, DEPO INJ 02/2013. History of Any Multi-Drug Resistant Organisms: MRSA Date of last positivie culture/infection: 06/08/17 MDRO Source:: AXILLA bilateral and right thigh Past Surgical History: Adenoidectomy, Cholecystectomy, Orthopedic Surgery, Tonsillectomy Additional Past Surgical History / Comment(s): BMT; EXC LT BUNION; WISDOM T EETH REMOVED; COLONOSCOPY/EGD Past Anesthesia/Blood Transfusion Reactions: No Reported Reaction Past Psychological History: Anxiety, Depression Smoking Status: Former smoker Past Alcohol Use History: None Reported Past Drug Use History: None Reported - Past Family History Father Additional Family Medical History / Comment(s): neuropathy General Exam Limitations: no limitations General appearance: alert, in no apparent distress Head exam: Present: atraumatic, normocephalic Eye exam: Present: normal appearance. Absent: scleral icterus, conjunctival injection ENT exam: Present: normal oropharynx Neck exam: Present: normal inspection, full ROM Respiratory exam: Present: normal lung sounds bilaterally. Absent: respiratory distress, wheezes, rales, rhonchi, stridor, chest wall tenderness, accessory muscle use Cardiovascular Exam: Present: regular rate, normal rhythm, normal heart sounds. Absent: systolic murmur, diastolic murmur, rubs, gallop GI/Abdominal exam: Present: soft. Absent: distended, tenderness, guarding, rebound, rigid, mass Extremities exam: Present: normal inspection, normal capillary refill. Absent: pedal edema, calf tenderness Back exam: Present: normal inspection. Absent: CVA tenderness (R), CVA tenderness (L) Neurological exam: Present: alert Skin exam: Present: warm, dry, intact, normal color. Absent: rash Course Vital Signs 01/01/21 03:45 Pulse Rate 77 Respiratory 18 Rate Blood Pressure 121/75 O2 Sat by Pulse 98 Oximetry Disposition Clinical Impression: Anterior pleuritic pain Disposition: HOME SELF-CARE Condition: Good Instructions (If sedation given, give patient instructions): Pleurisy (DC) Is patient prescribed a controlled substance at d/c from ED?: No Referrals: None,Stated [Primary Care Provider] - 1-2 days
[2021-01-01 04:33] LABS: Appearance,Urine Clear (Clear); Basophils % (A) 1 %; Bilirubin,Urine Negative (Negative); Blood,Urine Negative (Negative); Color,Urine Colorless; Eosinophils # (A) 0.1 k/uL (0-0.7); Eosinophils % (A) 1 %; Glucose,Urine (UA) Negative (Negative); HCT 39.2 % (34.0-46.0); HGB 13.8 gm/dL (11.4-16.0); Ketones,Urine Negative (Negative); Leukocyte Esterase,Urine Negative (Negative); Lymphocytes # (A) 1.9 k/uL (1.0-4.8); Lymphocytes % (A) 28 %; MCH 31.5 pg (25.0-35.0); MCHC 35.2 g/dL (31.0-37.0); MCV 89.4 fL (80.0-100.0); Mean Platelet Volume 7.3; Monocytes # (A) 0.3 k/uL (0-1.0); Monocytes % (A) 4 %; Neutrophils # (A) 4.4 k/uL (1.3-7.7); Neutrophils % (A) 64 %; Nitrite,Urine Negative (Negative); PH, Urine 5.5 (5.0-8.0); Platelet Count 194 k/uL (150-450); Protein,Urine Negative (Negative); RBC 4.39 m/uL (3.80-5.40); RDW 11.4 % (11.5-15.5); Specific Gravity,Urine 1.004 (1.001-1.035); Urobilinogen,Urine <2.0 mg/dL (<2.0); WBC 6.9 k/uL (3.8-10.6)
[2021-01-01 04:52] LABS: African American GFR (CKD) >90 (>60 ml/min/1.73 sqM); Anion Gap 6 mmol/L; Blood Urea Nitrogen 11 mg/dL (7-17); Calcium 9.6 mg/dL (8.4-10.2); Carbon Dioxide 28 mmol/L (22-30); Chloride 102 mmol/L (98-107); Glucose 117 mg/dL (74-99); Non-African American GFR(CKD) 88 (>60 ml/min/1.73 sqM); Sodium 136 mmol/L (137-145)
--- NOTE | 2021-01-01 05:06 | XR ---
EXAM: XR Chest, 2 Views CLINICAL HISTORY: ITS.REASON XR Reason: chest pain TECHNIQUE: Frontal and lateral views of the chest. COMPARISON: No relevant prior studies available. FINDINGS: Lungs: No consolidation or mass. Pleural space: No effusion. Heart: No cardiomegaly. Bones/joints: No acute findings. IMPRESSION: No acute cardiopulmonary process.
[2021-01-01] MEDS ORDERED: KETOROLAC 15 MG/ML 1 ML VIAL IVP STA (05:13)
[2021-01-01 06:06] VITALS: BP 112/66; PULSE 90; RESP 16
== END 2021-01-01 06:06 | disposition home or self-care (01) ==
LOC: EC 03:35
DX: R07.81 Pleurodynia (principal); Z87.891 Personal history of nicotine dependence
CPT/HCPCS: 36415; 71046; 80048; 81003; 81025; 84484; 85025; 85379; 93005; 96374; 99285

== ENCOUNTER 2021-03-24 09:25 | Emergency (ER) | payer MEDICAID, OTHER ==
[2021-03-24 09:37] VITALS: BP 114/79; PULSE 94; RESP 18; TEMP 98.1
--- NOTE | 2021-03-24 09:50 | ED ---
ENT HPI - General Chief complaint: ENT Stated complaint: R Ear Pain Time Seen by Provider: 03/24/21 09:38 Source: patient, RN notes reviewed Mode of arrival: ambulatory Limitations: no limitations - History of Present Illness Initial comments: 31-year-old female presents emergency department with chief complaint of right ear pain. Patient states started 1 week ago she was seen at [facility] was placed on Cefdinir for right otitis media. Patient states is not getting better states is worse now drainage out of her ear. Patient states that she's had fevers and chills no nasal congestion cough sore throat headache dizziness. No other complaints. - Related Data Home Medications Medication Instructions Recorded Confirmed Cyanocobalamin (Vitamin B-12) 1,000 mcg PO DAILY 05/16/20 08/17/20 [Vitamin B-12] Pnv No.95/Ferrous Fum/Folic AC 1 tab PO DAILY 05/16/20 08/17/20 [ Multivitamin Tablet] Previous Rx's Medication Instructions Recorded Amoxicillin/Potassium Clav 1 tab PO Q12HR #20 tab 03/24/21 [Augmentin 875-125 Tablet] Ciprofloxacin-Dexameth [Ciprodex 4 drops RIGHT EAR BID #7.5 ml 03/24/21 Otic Susp] Allergies Allergy/AdvReac Type Severity Reaction Status Date / Time No Known Allergies Allergy Verified 03/24/21 09:37 Review of Systems ROS Statement: Those systems with pertinent positive or pertinent negative responses have been documented in the HPI. ROS Other: All systems not noted in ROS Statement are negative. Past Medical History Past Medical History: No Reported History Additional Past Medical History / Comment(s): MULT MOLLUSCUM CONTAGIOSUM TO VAGINAL AREA. NO MENSES SINCE CHILDBIRTH, DEPO INJ 02/2013. History of Any Multi-Drug Resistant Organisms: MRSA Date of last positivie culture/infection: 06/08/17 MDRO Source:: AXILLA bilateral and right thigh Past Surgical History: Adenoidectomy, Cholecystectomy, Orthopedic Surgery, Tonsillectomy Additional Past Surgical History / Comment(s): BMT; EXC LT BUNION; WISDOM TEETH REMOVED; COLONOSCOPY/EGD Past Anesthesia/Blood Transfusion Reactions: No Reported Reaction Past Psychological History: Anxiety, Depression Smoking Status: Former smoker Past Alcohol Use History: None Reported Past Drug Use History: None Reported - Past Family History Father Additional Family Medical History / Comment(s): neuropathy General Exam Limitations: no limitations General appearance: alert, in no apparent distress Head exam: Present: atraumatic, normocephalic, normal inspection Eye exam: Present: normal appearance, PERRL, EOMI. Absent: scleral icterus, conjunctival injection, periorbital swelling ENT exam: Present: normal oropharynx, mucous membranes moist. Absent: normal exam, TM's normal bilaterally (Erythema the right TM), normal external ear exam (Mild erythema and swelling in the EAC) Neck exam: Present: normal inspection, full ROM. Absent: tenderness, meningismus, lymphadenopathy Respiratory exam: Present: normal lung sounds bilaterally. Absent: respiratory distress, wheezes, rales, rhonchi, stridor Cardiovascular Exam: Present: regular rate, normal rhythm, normal heart sounds. Absent: systolic murmur, diastolic murmur, rubs, gallop, clicks Course Vital Signs 03/24/21 09:34 Temperature 98.1 F Pulse Rate 94 Respiratory 18 Rate Blood Pressure 114/79 O2 Sat by Pulse 100 Oximetry Medical Decision Making - Medical Decision Making Patient has right otitis medial with early otitis external started on eardrops, antibiotics return parameters were discussed. Disposition Clinical Impression: Otitis externa of right ear, Otitis media of right ear Disposition: HOME SELF-CARE Condition: Stable Instructions (If sedation given, give patient instructions): Earache (ED) Additional Instructions: Please return to the Emergency Department if symptoms worsen or any other concerns. Prescriptions: Amoxicillin/Potassium Clav [Augmentin 875-125 Tablet] 1 tab PO Q12HR #20 tab Ciprofloxacin-Dexameth [Ciprodex Otic Susp] 4 drops RIGHT EAR BID #7.5 ml Is patient prescribed a controlled substance at d/c from ED?: No Referrals: None,Stated [Primary Care Provider] - 1-2 days Time of Disposition: 09:50
== END 2021-03-24 10:00 | disposition home or self-care (01) ==
LOC: EC 09:25
DX: H60.91 Unspecified otitis externa, right ear (principal); H66.91 Otitis media, unspecified, right ear; H72.91 Unspecified perforation of tympanic membrane, right ear; F41.9 Anxiety disorder, unspecified; F32.9 Major depressive disorder, single episode, unspecified; Z87.891 Personal history of nicotine dependence
CPT/HCPCS: 99282

== ENCOUNTER 2021-05-12 00:28 | Observation (INO) | payer MEDICAID, OTHER ==
[2021-05-12] MEDS ORDERED: MORPHINE SULFATE 4 MG/ML SYRINGE IV STA (00:59)
[2021-05-12 01:35] LABS: Basophils % (A) 0 %; Eosinophils # (A) 0.1 k/uL (0-0.7); Eosinophils % (A) 1 %; HCT 34.1 % (34.0-46.0); HGB 12.3 gm/dL (11.4-16.0); Lymphocytes # (A) 2.1 k/uL (1.0-4.8); Lymphocytes % (A) 18 %; MCH 31.7 pg (25.0-35.0); MCV 88.2 fL (80.0-100.0); Mean Platelet Volume 7.2; Monocytes # (A) 0.5 k/uL (0-1.0); Monocytes % (A) 5 %; Neutrophils # (A) 8.4 k/uL (1.3-7.7); Neutrophils % (A) 75 %; Platelet Count 259 k/uL (150-450); RBC 3.87 m/uL (3.80-5.40); WBC 11.2 k/uL (3.8-10.6)
[2021-05-12 01:41] LABS: ALT 22 U/L (4-34); AST 30 U/L (14-36); African American GFR (CKD) >90 (>60 ml/min/1.73 sqM); Albumin 4.3 g/dL (3.5-5.0); Alkaline Phosphatase 48 U/L (38-126); Amylase 50 U/L (30-110); Anion Gap 8 mmol/L; Blood Urea Nitrogen 12 mg/dL (7-17); Calcium 9.4 mg/dL (8.4-10.2); Carbon Dioxide 22 mmol/L (22-30); Chloride 108 mmol/L (98-107); Glucose 111 mg/dL (74-99); Lipase 116 U/L (23-300); Non-African American GFR(CKD) >90 (>60 ml/min/1.73 sqM); Potassium 3.7 mmol/L (3.5-5.1); Sodium 138 mmol/L (137-145); Total Bilirubin 0.2 mg/dL (0.2-1.3); Total Protein 6.6 g/dL (6.3-8.2)
[2021-05-12] MEDS ORDERED: HYDROmorphone 0.5 MG/0.5 ML SYRINGE IVP STA (02:15)
[2021-05-12 02:20] LABS: Appearance,Urine Clear (Clear); Bilirubin,Urine Negative (Negative); Blood,Urine Negative (Negative); Color,Urine Yellow; Glucose,Urine (UA) Negative (Negative); Ketones,Urine Negative (Negative); Leukocyte Esterase,Urine Negative (Negative); Nitrite,Urine Negative (Negative); PH, Urine 5.5 (5.0-8.0); Protein,Urine Trace (Negative); Specific Gravity,Urine 1.044 (1.001-1.035); Urobilinogen,Urine <2.0 mg/dL (<2.0)
--- NOTE | 2021-05-12 03:02 | XR ---
EXAMINATION TYPE: XR chest 1V DATE OF EXAM: 05/12/2021 COMPARISON: 01/01/2021 HISTORY: Pleuritic pain TECHNIQUE: Single view FINDINGS: Heart and mediastinum are normal. Lungs are clear. Diaphragm is normal. Bony thorax is inta ct. IMPRESSION: Normal chest. No change.
--- NOTE | 2021-05-12 03:24 | ED ---
Abdominal Pain HPI - General Chief Complaint: Abdominal Pain Stated Complaint: Abdominal Pain Time Seen by Provider: 05/12/21 00:51 Source: patient Mode of arrival: ambulatory Limitations: no limitations - History of Present Illness Initial Comments: Patient is 31-year-old woman who presents to be evaluated for pelvic and abdominal pain that is been going on since proximal to 6:30 tonight. The patient states that her symptoms started with rectal pressure that developed during sexual intercourse at that time. Patient states the following that she d eveloped pelvic pain and then shortly after was having abdominal pain which was worse with taking deep breath. Patient states that her last period was approximately April 12. Denies vaginal discharge or vaginal bleeding MD Complaint: abdominal pain Onset/Timin -: hour(s) Location: LLQ, RLQ, suprapubic Severity: severe Quality: cramping, sharp Consistency: constant Improves With: nothing Worsens With: movement, other (Inspiration) Associated Symptoms: denies other symptoms - Related Data LMP (females 10-50): 3 weeks Home Medications Medication Instructions Recorded Confirmed Cyanocobalamin (Vitamin B-12) 1,000 mcg PO DAILY 05/16/20 08/17/20 [Vitamin B-12] Pnv No.95/Ferrous Fum/Folic AC 1 tab PO DAILY 05/16/20 08/17/20 [ Multivitamin Tablet] Previous Rx's Medication Instructions Recorded Amoxicillin/Potassium Clav 1 tab PO Q12HR #20 tab 03/24/21 [Augmentin 875-125 Tablet] Ciprofloxacin-Dexameth [Ciprodex 4 drops RIGHT EAR BID #7.5 ml 03/24/21 Otic Susp] Allergies Allergy/AdvReac Type Severity Reaction Status Date / Time No Known Allergies Allergy Verified 05/12/21 00:39 Review of Systems ROS Statement: Those systems with pertinent positive or pertinent negative responses have been documented in the HPI. ROS Other: All systems not noted in ROS Statement are negative. Constitutional: Denies: fever, chills Respiratory: Denies: cough, dyspnea Cardiovascular: Denies: chest pain, palpitations Gastrointestinal: Reports: as per HPI, abdominal pain. Denies: nausea, vomiting, diarrhea, constipation Genitourinary: Denies: dysuria, frequency, hematuria, abnormal menses Musculoskeletal: Denies: back pain Skin: Denies: rash Neurological: Denies: headache, weakness, numbness Past Medical History Past Medical History: No Reported History Additional Past Medical History / Comment(s): MULT MOLLUSCUM CONTAGIOSUM TO VAGINAL AREA. NO MENSES SINCE CHILDBIRTH, DEPO INJ 02/2013. History of Any Multi-Drug Resistant Organisms: MRSA Date of last positivie culture/infection: 06/08/17 MDRO Source:: AXILLA bilateral and right thigh Past Surgical History: Adenoidectomy, Cholecystectomy, Orthopedic Surgery, Tonsillectomy Additional Past Surgical History / Comment(s): BMT; EXC LT BUNION; WISDOM TEETH REMOVED; COLONOSCOPY/EGD Past Anesthesia/Blood Transfusion Reactions: No Reported Reaction Past Psychological History: Anxiety, Depression Smoking Status: Former smoker Past Alcohol Use History: Occasional Past Drug Use History: None Reported - Past Family History Father Additional Family Medical History / Comment(s): neuropathy General Exam Limitations: no limitations General appearance: alert, in no apparent distress Head exam: Present: atraumatic, normocephalic Eye exam: Present: normal appearance. Absent: scleral icterus, conjunctival injection ENT exam: Present: normal oropharynx Neck exam: Present: normal inspection Respiratory exam: Present: normal lung sounds bilaterally. Absent: respiratory distress, wheezes, rales, rhonchi, stridor Cardiovascular Exam: Present: regular rate, normal rhythm, normal heart sounds. Absent: systolic murmur, diastolic murmur, rubs, gallop GI/Abdominal exam: Present: soft, tenderness (There is bilateral lower quadrant tenderness), normal bowel sounds. Absent: distended, guarding, rebound, rigid, mass, pulsatile mass, hernia Extremities exam: Present: normal inspection, normal capillary refill. Absent: pedal edema, calf tenderness Back exam: Present: normal inspection. Absent: CVA tenderness (R), CVA tenderness (L) Neurological exam: Present: alert Skin exam: Present: warm, dry, intact, normal color. Absent: rash Course Vital Signs 05/12/21 05/12/21 05/12/21 00:35 02:24 05:04 Temperature 98.1 F Pulse Rate 94 84 78 Respiratory 20 18 18 Rate Blood Pressure 115/78 111/68 106/55 O2 Sat by Pulse 97 98 100 Oximetry - Reevaluation(s) Reevaluation #1: 05/12/21 04:57 I had received call from the radiologist a few minutes ago with concerns about possibility of ectopic and possible rupture. I discussed findings with patient and have paged Dr. Bryan who is covering for the patient's chief controller station Dr. Dejesus. Reevaluation #2: 05/12/21 05:[address] Clinton who plans to take the patient to the OR for laparoscopy Medical Decision Making - Lab Data Result diagrams: 05/12/21 01:05/12/21 01:21 Lab Results 05/12/21 05/12/21 05/12/21 Range/Units : 01: 01:21 WBC 11.2 H (3.8-10.6) k/uL RBC 3.87 (3.80-5.40) m/uL Hgb 12.3 (11.4-16.0) gm/dL Hct 34.1 (34.0-46.0) % MCV 88.2 (80.0-100.0) fL MCH 31.7 (25.0-35.0) pg MCHC 36.0 (31.0-37.0) g/dL RDW 12.0 (11.5-15.5) % Plt Count 259 (150-450) k/uL MPV 7.2 Neutrophils % 75 % Lymphocytes % 18 % Monocytes % 5 % Eosinophils % 1 % Basophils % 0 % Neutrophils # 8.4 H (1.3-7.7) k/uL Lymphocytes # 2.1 (1.0-4.8) k/uL Monocytes # 0.5 (0-1.0) k/uL Eosinophils # 0.1 (0-0.7) k/uL Basophils # 0.0 (0-0.2) k/uL Sodium (137-145) mmol/L Potassium (3.5-5.1) mmol/L Chloride (98-107) mmol/L Carbon Dioxide (22-30) mmol/L Anion Gap mmol/L BUN (7-17) mg/dL Creatinine (0.52-1.04) mg/dL Est GFR (CKD-EPI)AfAm (>60 ml/min/1.73 sqM) Est GFR (CKD-EPI)NonAf (>60 ml/min/1.73 sqM) Glucose (74-99) mg/dL Calcium (8.4-10.2) mg/dL Total Bilirubin (0.2-1.3) mg/dL AST (14-36) U/L ALT (4-34) U/L Alkaline Phosphatase (38-126) U/L Total Protein (6.3-8.2) g/dL Albumin (3.5-5.0) g/dL Amylase (30-110) U/L Lipase (23-300) U/L HCG, Quant mIU/mL Urine Color Yellow Urine Appearance Clear (Clear) Urine pH 5.5 (5.0-8.0) Ur Specific [place] 1.044 H (1.001-1.035) Urine Protein Trace H (Negative) Urine Glucose (UA) Negative (Negative) Urine Ketones Negative (Negative) Urine Blood Negative (Negative) Urine Nitrite Negative (Negative) Urine Bilirubin Negative (Negative) Urine Urobilinogen <2.0 (<2.0) mg/dL Ur Leukocyte Esterase Negative (Negative) Urine HCG, Qual Detected (Not Detectd) Blood Type Blood Type Recheck Bld Type Recheck Status 05/12/21 05/12/21 05/12/21 Range/Units 01:21 : 04:58 WBC (3.8-10.6) k/uL RBC (3.80-5.40) m/uL Hgb (11.4-16.0) gm/dL Hct (34.0-46.0) % MCV (80.0-100.0) fL MCH (25.0-35.0) pg MCHC (31.0-37.0) g/dL RDW (11.5-15.5) % Plt Count (150-450) k/uL MPV Neutrophils % % Lymphocytes % % Monocytes % % Eosinophils % % Basophils % % Neutrophils # (1.3-7.7) k/uL Lymphocytes # (1.0-4.8) k/uL Monocytes # (0-1.0) k/uL Eosinophils # (0-0.7) k/uL Basophils # (0-0.2) k/uL Sodium 138 (137-145) mmol/L Potassium 3.7 (3.5-5.1) mmol/L Chloride 108 H (98-107) mmol/L Carbon Dioxide 22 (22-30) mmol/L Anion Gap 8 mmol/L BUN 12 (7-17) mg/dL Creatinine 0.57 (0.52-1.04) mg/dL Est GFR (CKD-EPI)AfAm >90 (>60 ml/min/1.73 sqM) Est GFR (CKD-EPI)NonAf >90 (>60 ml/min/1.73 sqM) Glucose 111 H (74-99) mg/dL Calcium 9.4 (8.4-10.2) mg/dL Total Bilirubin 0.2 (0.2-1.3) mg/dL AST 30 (14-36) U/L ALT 22 (4-34) U/L Alkaline Phosphatase 48 (38-126) U/L Total Protein 6.6 (6.3-8.2) g/dL Albumin 4.3 (3.5-5.0) g/dL Amylase 50 (30-110) U/L Lipase 116 (23-300) U/L HCG, Quant 186.8 mIU/mL Urine Color Urine Appearance (Clear) Urine pH (5.0-8.0) Ur Specific [place] (1.001-1.035) Urine Protein (Negative) Urine Glucose (UA) (Negative) Urine Ketones (Negative) Urine Blood (Negative) Urine Nitrite (Negative) Urine Bilirubin (Negative) Urine Urobilinogen (<2.0) mg/dL Ur Leukocyte Esterase (Negative) Urine HCG, Qual (Not Detectd) Blood Type O Positive Blood Type Recheck O Pos Bld Type Recheck Status No Disposition Clinical Impression: Pelvic pain, Ectopic Disposition: ADMITTED IP TO THIS [facility] Condition: Serious
--- NOTE | 2021-05-12 04:46 | US ---
EXAMINATION TYPE: Transabdominal DATE OF EXAM: 05/12/2021 4:34 AM COMPARISON: NONE CLINICAL HISTORY: pelvic pain,. Pelvic pain. . EXAM PERFORMED: Transvaginal (TV) and Transabdominal (TA). Dr. Moss requests to rule out torsion of ovaries as well. EXAM MEASUREMENTS: GESTATIONAL AGE / DATING Physician Established: Not yet established. Dates by LMP: (4 weeks/2 days) EDC: 01/17/2022 Dates by First Scan: This is first scan. Dates by Current Scan for: No IUP seen at this time. MATERNAL ANATOMY Uterus: 9.1 x 5.9 x 5.1 cm. Anteverted. Right Ovary: Not definitely seen. Possibly seen in right adnexa as mentioned below. Left Ovary: Not seen. Post CDS / Adnexa: Complex area is seen in right adnexa/posterior to the uterus measuring 9.7 x 5.7 x 4.7 cm. This area is heterogeneous and has a hypoechoic component within measuring 4.4 x 4.6 x 3.7 cm. The area shows arterial and venous waveforms. Presence of free fluid: Yes, throughout the pelvis. Fluid is seen in right adnexa: 1.7 x 4.7 x 3.3 cm , left adnexa: 2.7 x 2.0 x 1.4 cm, and cul de sac: 2.5 x 2.5 x 3.1 cm. Minimal fluid seen surroundin g uterus. Possible complex fluid surrounding uterus? GESTATION / SURVEY CRL: Not seen. IUP: No IUP seen at this time. Area of uncertainty seen in right adnexa/posterior to the uterus. Date of LMP: 04/12/2021 Beta HcG (if available): Detected IMPRESSION: Empty uterus. Complex mass in the right adnexal region suspicious for ectopic . This exam wa s discussed with Dr. So at 4:45 AM.
[2021-05-12] MEDS ORDERED: HYDROmorphone 1 MG/ML 1 ML SYRINGE IVP STA (04:52)
[2021-05-12] MEDS ORDERED: NALOXONE 0.4 MG/ML 1 ML VIAL IV PRN (05:05)
[2021-05-12] MEDS ORDERED: HYDROmorphone 1 MG/ML 1 ML SYRINGE IVP PRN (05:05)
[2021-05-12] MEDS ORDERED: ONDANSETRON 4 MG/2 ML VIAL IVP PRN (05:05)
[2021-05-12] MEDS ORDERED: HYDROmorphone 0.5 MG/0.5 ML SYRINGE IVP PRN (05:05)
[2021-05-12] MEDS: SODIUM CHLORIDE 0.9% 1,000 ML IV SCH ×2 (05:21→16:05)
[2021-05-12] MEDS ORDERED: ACETAMINOPHEN IV (For NPO) 1,000 MG in EMPTY BAG 1 BAG IVPB STA (05:33)
--- NOTE | 2021-05-12 05:43 | P.HPOB ---
History of Present Illness H&P Date: 05/12/21 Chief Complaint: Pelvic pain This 31-year-old 1 para 1 presented to emergency department this evening with complaints of pelvic and abdominal pain that started around 1830 this evening. Patient states the pain got worse therefore she presented to the emergency department around midnight. Patient denies vaginal bleeding. She states her last menstrual period was April 12. She states she does have regular menstrual cycles every 28-30 days lasting approximately 5 days with moderate flow. She states this period was very normal for her. She has a history of spontaneous vaginal delivery in August of last year, she denies any complications with that . Quantitative beta hCG was performed with a result of 199, ultrasound was performed while in the emergency department the uterus was noted to be normal in size at 9 x 5 x 5, the posterior cul-de-sac/adnexa was noted to have a complex area in the right adnexa measuring 9.7 x 5.7 x 4.7. This area appeared heterogeneous with a component measuring 4.4 x 4.6 x 3.7, showing arterial and venous waveforms. There was free fluid throughout the pelvis. Findings suspicious for ectopic. Review of Systems Constitutional: Reports fatigue, Denies chills, Denies fever Ears, nose, mouth and throat: Denies headache Cardiovascular: Denies edema Respiratory: Denies dyspnea Gastrointestinal: Denies nausea, Denies vomiting Genitourinary: Reports Past Medical History Past Medical History: No Reported History Additional Past Medical History / Comment(s): MULT MOLLUSCUM CONTAGIOSUM TO VAGINAL AREA. NO MENSES SINCE CHILDBIRTH, DEPO INJ 02/2013. History of Any Multi-Drug Resistant Organisms: MRSA Date of last positivie culture/infection: 06/08/17 MDRO Source:: AXILLA bilateral and right thigh Past Surgical History: Adenoidectomy, Cholecystectomy, Orthopedic Surgery, Ton sillectomy Additional Past Surgical History / Comment(s): BMT; EXC LT BUNION; WISDOM TEETH REMOVED; COLONOSCOPY/EGD Past Anesthesia/Blood Transfusion Reactions: No Reported Reaction Past Psychological History: Anxiety, Depression Smoking Status: Former smoker Past Alcohol Use History: Occasional Past Drug Use History: None Reported - Past Family History Father Additional Family Medical History / Comment(s): neuropathy Medications and Allergies Home Medications Medication Instructions Recorded Confirmed Type Cyanocobalamin (Vitamin B-12) 1,000 mcg PO DAILY 05/16/20 08/17/20 History [Vitamin B-12] Pnv No.95/Ferrous Fum/Folic AC 1 tab PO DAILY 05/16/20 08/17/20 History [ Multivitamin Tablet] Amoxicillin/Potassium Clav 1 tab PO Q12HR #20 tab 03/24/21 Rx [Augmentin 875-125 Tablet] Ciprofloxacin-Dexameth [Ciprodex 4 drops RIGHT EAR BID #7.5 ml 03/24/21 Rx Otic Susp] Allergies Allergy/AdvReac Type Severity Reaction Status Date / Time No Known Allergies Allergy Verified 05/12/21 00:39 Exam Osteopathic Statement: *. No significant issues noted on an osteopathic structural exam other than those noted in the History and Physical/Consult. 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 Pelvic exam is deferred. Results Result Diagrams: 05/12/21 01:05/12/21 01:21 Abnormal Lab Results - Last 24 Hours (Table) 05/12/21 05/12/21 05/12/21 Range/Units :02 12: 01:21 WBC 11.2 H (3.8-10.6) k/uL Neutrophils # 8.4 H (1.3-7.7) k/uL Chloride 108 H (98-107) mmol/L Glucose 111 H (74-99) mg/dL Ur Specific [place] 1.044 H (1.001-1.035) Urine Protein Trace H (Negative) Assessment and Plan (1) Pelvic pain Current Visit: Yes Status: Acute Code(s): R10.2 - PELVIC AND PERINEAL PAIN SNOMED Code(s): 42264061 (2) Ectopic Current Visit: Yes Status: Acute Code(s): O00.90 - UNSPECIFIED ECTOPIC PREGN SCOTTIE WITHOUT INTRAUTERINE SNOMED Code(s): 72729651 Plan: 31-year-old that presented to the emergency department with complaints of pelvic pain. Patient had a positive test here in the emergency department, this was unknown to her. Patient underwent ultrasound with findings suspicious for ectopic , ultrasound revealing in the posterior cul-de-sac/right adnexa a complex area measuring 9.7 x 5.7 x 4.7, in addition to this there is a hypoechoic component measuring 4.4 x 4.6 x 3.7 with showing arterial and venous waveforms. There was presence of free fluid within the pelvis. Findings are suspicious for ectopic . Patient is counseled on these findings, need for operative laparoscopy with possible salpingectomy is discussed with patient, patient states she has had multiple surgeries in the past and has done well. Surgery is reviewed and questions were answered. Awaiting anesthesia and or team.
[2021-05-12] MEDS ORDERED: ACETAMINOPHEN IV (For NPO) 1,000 MG/100 ML VIAL ONE (06:33)
[2021-05-12] MEDS ORDERED: GLYCOPYRROLATE 0.2 MG/ML 2 ML VIAL ONE (06:33)
[2021-05-12] MEDS ORDERED: NEOSTIGMINE 1 MG/ML 10 ML VIAL ONE (06:33)
[2021-05-12] MEDS ORDERED: PROPOFOL 10 MG/ML 20 ML VIAL IV ONE (06:33)
[2021-05-12] MEDS ORDERED: MIDAZOLAM 2 MG/2 ML VIAL ONE (06:33)
[2021-05-12] MEDS ORDERED: ONDANSETRON 4 MG/2 ML VIAL ONE (06:33)
[2021-05-12] MEDS ORDERED: PHENYLEPHRINE-0.9% NACL SYG 1,000 MCG/10 ML SYRINGE ONE (06:33)
[2021-05-12] MEDS ORDERED: SUCCINYLCHOLINE CHLORIDE 100 MG/5 ML SYR IV ONE (06:33)
[2021-05-12] MEDS ORDERED: ROCURONIUM 10 MG/ML (5 ML VIAL) IV ONE (06:33)
[2021-05-12] MEDS ORDERED: LIDOCAINE 1% INJ 10MG/ML (20 ML MDV) ONE (06:33)
[2021-05-12] MEDS ORDERED: fentaNYL (PF) 50 MCG/ML 2 ML AMP ONE (06:33)
[2021-05-12] MEDS ORDERED: IV FLUID CONTINUATION 900 ML IV ONE (06:36)
[2021-05-12] MEDS ORDERED: BUPIVACAINE (PF) 0.25% 30 ML VIAL SQ ONE ×2 (07:21)
[2021-05-12] MEDS ORDERED: KETOROLAC 15 MG/ML 1 ML VIAL IVP ONE (07:44)
--- NOTE | 2021-05-12 07:46 | P.OP ---
Date of Procedure: 05/12/21 Preoperative Diagnosis: Pelvic pain, suspected ectopic with positive test in adnexal mass. Postoperative Diagnosis: Ruptured hemorrhagic ovarian cyst with hemoperitoneum Procedure(s) Performed: Operative laparoscopy with evacuation of hemoperitoneum Anesthesia: GETA Surgeon: Gisselle Clinton Estimated Blood Loss (ml): 100 Urine output (ml): 100 Pathology: none sent Condition: stable Disposition: PACU Indications for Procedure: 31-year-old patient that presented to the ER with complaints of pelvic pain, positive test was noted, quantitative beta hCG was noted to be 189. Patient was noted have adnexal mass with blood flow. Patient was taken to the operating suite for presumed ectopic given free fluid positive test and adnexal mass. Operative Findings: Hemoperitoneum was appreciated, the pelvis was filled with dark clotted blood, blood was appreciated up to the liver. Bilateral fallopian tubes were noted to be normal in nature. Right ovary with ruptured hemorrhagic ovarian cyst. Description of Procedure: Patient was seen in the emergency department and counseled on need for surgery given positive test adnexal mass and free fluid. Patient stated understanding. Patient was taken back to the operating suite where general anesthesia was obtained without difficulty by the anesthesia department. She was prepped and draped in normal sterile fashion in the dorsal lithotomy position. A red rubber catheter was used to drain the bladder clear yellow urine. A weighted speculum was placed in the posterior vaginal vault the anterior lip of the cervix is visualized and grasped with a single-tooth tenaculum. An acorn uterine macular was advanced into the cervix as a means to manipulate the uterus throughout the procedure. Attention was then turned to the patient's umbilical fold a 5 mm skin incision was then made the Veress needle was placed through the skin incision and toward the abdominal cavity. Once the Veress needle was deemed to be in the proper position with a drop of CO2 pressure with insufflation of CO2 gas CO2 insufflation was allowed to occur. Approximately 3 L of gas were used to obtain pneumoperitoneum. At this time the above-noted finds were visualized. An additional port is placed in the mid abdomen this is a 5 mm port placed under direct visualization. The suction forging press operator was then used to evacuate the pelvis of approximately 1 L of blood. Both fallopian tubes were visualized and found to be normal. At this time the additional port site is placed on the left mid abdomen under direct visualization. Blunt probe was then used to elevate the right ovary and Surgicel was placed on the area of cyst rupture. Hemostasis was appreciated. After evacuation of blood from the posterior cul-de-sac no further bleeding was appreciated. Suction forging press operator was used to evacuate bleeding from above the liver. Once again the ovary was visualized and found to be hemostatic. All instructions were then removed from the patient's abdomen. The skin incisions were closed with 4-0 Vicryl in a subcu fashion Steri-Strips and sterile dressings were applied. Attention was then turned the patient's vaginal vault the acorn uterine and bladder was removed along with the single tooth tenaculum hemostasis was appreciated. All counts were noted to be correct 2, patient tolerated procedure well and was taken the recovery room awake in stable condition.
[2021-05-12] MEDS ORDERED: IBUPROFEN 600 MG TAB PO PRN (07:47)
[2021-05-12] MEDS ORDERED: Acetaminophen-Codeine 300-30mg TAB PO PRN (07:47)
[2021-05-12] MEDS ORDERED: SIMETHICONE 80 MG CHEWABLE PO PRN (07:47)
[2021-05-12] MEDS ORDERED: SODIUM CHLORIDE 0.9% 1,000 ML IV ONE (08:11)
[2021-05-12] MEDS: Acetaminophen-Codeine 300-30mg TAB PO PRN ×2 (08:51→14:40)
[2021-05-12 10:06] LABS: HCT 26.9 % (34.0-46.0); MCH 31.3 pg (25.0-35.0); MCHC 34.9 g/dL (31.0-37.0); MCV 89.5 fL (80.0-100.0); Mean Platelet Volume 7.1; Platelet Count 165 k/uL (150-450); RBC 3.01 m/uL (3.80-5.40); WBC 7.4 k/uL (3.8-10.6)
[2021-05-12 10:14] LABS: HGB 9.4 gm/dL (11.4-16.0)
[2021-05-12 11:45] VITALS: PULSE 80
[2021-05-12 15:17] VITALS: BP 144/71; RESP 17; TEMP 98.5
--- NOTE | 2021-05-12 15:30 | P.PN ---
Progress Note - Text Progress Note Date: 05/12/21 31-year-old presented to the emergency department around midnight after noting increasing pelvic pain. Patient states she had intercourse around 1830 and pain became severe and therefore she presented to the emergency department. Patient had a positive UCG. Last Ad. Of April 12. Patient was unaware that she was . An ultrasound adnexal mass was appreciated with free fluid in the pelvis. Patient was taken for operative laparoscopy with evacuation of hemoperitoneum. Diagnosis of hemorrhagic ovarian cyst was made. Both fallopian tubes were noted to be grossly normal. Postoperatively patient had noted acute blood loss anemia, hemoglobin went from 12-9. Patient has done well postoperatively. Vital signs are noted to be stable. She is ambulating and voiding without difficulty. She is tolerating clear liquids without nausea or vomiting. She states her pain is well- controlled. Assessment Ruptured hemorrhagic ovarian cyst, hemoperitoneum Plan Status post operative laparoscopy with evacuation of hemoperitoneum, both fallopian tubes are noted to be grossly normal. Findings of surgery are reviewed with the patient. Will plan repeat beta hCG Sunday. The hospital. Tylenol 3 is given to patient for pain control postoperatively. Patient is d iscouraged from taking Motrin product given positive UCG. Patient is urged to continue a daily vitamin. Bleeding precautions are given with patient. Discussed with patient the acute blood loss anemia may cause miscarriage and at this point she has a threatened AB. Patient states understanding all questions are answered she will call the office for lab results.
== END 2021-05-12 16:10 | disposition home or self-care (01) ==
LOC: EC 00:28 → 4SSUR 05:05
PROVIDERS: ADMIT Obstetrics & Gynecology Obstetrics; ATTEND Obstetrics & Gynecology Obstetrics
DX: O34.81 Maternal care for other abnormalities of pelvic organs, first trimester (principal); N83.201 Unspecified ovarian cyst, right side; K66.1 Hemoperitoneum; O99.011 Anemia complicating pregnancy, first trimester; D62 Acute posthemorrhagic anemia; K21.9 Gastro-esophageal reflux disease without esophagitis; F32.9 Major depressive disorder, single episode, unspecified; F41.9 Anxiety disorder, unspecified; Z20.822 Contact with and (suspected) exposure to COVID-19; Z3A.01 Less than 8 weeks gestation of pregnancy; Z86.14 Personal history of Methicillin resistant Staphylococcus aureus infection; Z90.49 Acquired absence of other specified parts of digestive tract; Z87.891 Personal history of nicotine dependence; Z98.890 Other specified postprocedural states; Z87.42 Personal history of other diseases of the female genital tract; Z82.0 Family history of epilepsy and other diseases of the nervous system
CPT/HCPCS: 96376; 96374; 96375; 99285; 36415; 86900; 86901; 80053; 82150; 83690; 85025; 85027; 81003; 81025; 84702; 87635; 71045; 76801; 76817; 49322; G0378; J2250; J2270; J2710; J2405; J2001; J3010; J1170 ×2; J0131; J1885; J2370; J0330; J2704

== ENCOUNTER → 2021-05-13 | Outpatient (CLI) | payer MEDICAID, OTHER | END | disposition home or self-care (01) | LOC: LABWHC1 11:04 | PROVIDERS: ATTEND Obstetrics & Gynecology Obstetrics | DX: Z34.90 Encounter for supervision of normal pregnancy, unspecified, unspecified trimester (principal); Z3A.00 Weeks of gestation of pregnancy not specified | CPT/HCPCS: 36415; 84144; 84702 ==

== ENCOUNTER → 2021-05-24 | Outpatient (CLI) | payer MEDICAID, OTHER | END | disposition home or self-care (01) | LOC: LABWHC1 13:51 | PROVIDERS: ATTEND Obstetrics & Gynecology | DX: O00.109 Unspecified tubal pregnancy without intrauterine pregnancy (principal); Z3A.00 Weeks of gestation of pregnancy not specified | CPT/HCPCS: 36415; 84702 ==

== ENCOUNTER 2022-01-09 22:37 | Outpatient (CLI) | payer OTHER ==
[2022-01-10 00:01] VITALS: BP 118/67; PULSE 86; RESP 16; TEMP 97.1
--- NOTE | 2022-02-03 10:34 | P.MSEPDOC ---
Presenting Problems - Arrival Data Date of Arrival on Unit: 01/09/22 Time of Arrival on Unit: 22:37 Mode of Transport: Ambulatory - Complaint OB-Reason for Admission/Chief Complaint: Decreased Movement, Pain Comment: Pt presents to triage with complaints of right lower abdominal pain and decreased movement since this morning. Medical History - Information : 3 Para: 2 Term: 2 : 0 Abortions: Spontaneous or Elective: 0 Number of Living Children: 2 - Gestational Age Gestational Age by TRINIDAD (wks/days): 38 Weeks and 6 Days - History Complications: No Care Review of Systems - Review of Systems Constitutional: No problems Breast: No problems ENT: No problems Cardiovascular: No problems Respiratory: No problems Gastrointestinal: No problems Genitourinary: No problems Musculoskeletal: No problems Neurological: No problems Skin: No problems Vital Signs - Temperature Temperature: 97.1 F Temperature Source: Oral - Pulse Right Brachial Pulse Rate: 86 Pulse Assessment Method: Automatic Cuff - Respirations Respiratory Rate: 16 Oxygen Delivery Method: Room Air - Blood Pressure Right Arm Blood Pressure: 118/67 Blood Pressure Mean: 84 Blood Pressure Source: Automatic Cuff Medical Screen Scoring - Cervical Exam Dilation (cm): 2 Effacement (%): 50 Station: -2 Membranes: Intact - Uterine Contractions Resting: Soft to palpation - Assessment - Baby A Baseline FHR: 130 Heart Rate - NICHD Category: Category I (Normal) NST: Reactive Physician Notification - Physician Notified Physician Notified Date: 01/09/22 Physician Notified Time: 23:10 Physician: Joseline Dejesus Order Received: Yes - Notification Comment Comment: Dr. Dejesus called with report of cervical exam of 50/-2, patient c/o right ligament pain, and decreased movement. Reactive NST and no contractions. Patient to be discharged home with education on pain relieving meausres such as warmth, support belt, and positon changes. Patient to follow up with Dr. Dejesus on 01/12/22 Maternal Triage Index - Maternal Triage Index Presenting for scheduled procedure w/no complaint: No - Stat/Priority 1 Stat Priority 1: No - Urgent/Priority 2 Urgent Priority 2: No - Prompt/Priority 3 Prompt Priority 3: No - Non-Urgent/Priority 4 Non-Urgent Priority 4: Yes Criteria Met for Priority 4: Pt presents to triage with complaints of right lower abdominal pain and. decreased movement since this morning. Disposition - Disposition OB Disposition: Physician follow up in office, Discharge to home Discharge Date: 01/09/22 Discharge Time: 23:14 I agree with the RN Medical Screening Exam: Yes Case reviewed; plan agreed upon as documented in EMR&OBIX.: Yes Comments: Patient was neither seen nor examined by me Diagnosis: DECREASED MOVEMENTS, THIRD TRIMESTER, FETUS 1
== END 2022-01-09 23:14 ==
LOC: FBPOP 22:37
PROVIDERS: ATTEND Obstetrics & Gynecology
DX: O36.8131 Decreased fetal movements, third trimester, fetus 1 (principal); Z3A.38 38 weeks gestation of pregnancy
CPT/HCPCS: 59025; G0463; 99213

== ENCOUNTER 2022-01-10 14:16 | Inpatient (IN) | payer OTHER ==
--- NOTE | 2022-01-10 15:23 | P.HPOB ---
History of Present Illness H&P Date: 01/10/22 Chief Complaint: My water broke this morning, clear fluid This is a 31-year-old female 3 para 2002 EDC 6 01/17/2022 at 39 weeks gestation. Patient states that her water has been leaking since this morning, however she had a hair appointment and therefore presents this afternoon for admission. She is having mild irregular contractions at this time. Fetus is been active throughout the . Past medical history significant for anxiety and depression. Past surgical history adenoidectomy, bunionectomy, cholecystectomy, colposcopy, laparoscopy, tonsillectomy, tympanic tubes, wisdom teeth extracted. Current medications vitamins daily, baby aspirin daily, iron supplement daily. ALLERGIES none known. Family history significant for neuropathy. Obstetric history normal spontaneous vaginal deliveries 2, both healthy and unremarkable. 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 She is a former smoker, quit last fall. We shel[place] history significant for blood type O positive, rubella status immune. Hepatitis B surface antigen, HIV testing, urine culture, gonorrhea and chlamydia cultures, group B strep cultures all negative. One-hour Glucola 120. On exam patient is 5 foot 7 inches, 192 pounds, vital signs are stable and she is afebrile. General physical exam is within normal limits. Extremities reveal no edema. Chest is clear in all [place]. Cervix is 3 cm dilated, 60% effaced, - 2 station, vertex presentation, obvious clear fluid. Soft and anterior. heart rate is consistent with reactive NST. Uterine contractions are occurring mildly, every 3 minutes apart. Impression: 39 week intrauterine , spontaneous amniorrhexis this morning, very early labor. All signs reassuring. Plan: Oxytocin per hospital protocol. Analgesic options reviewed. Close maternal and surveillance. Anticipate normal spontaneous vaginal delivery. Review of Systems Constitutional: Reports as per HPI Past Medical History Past Medical History: No Reported History Additional Past Medical History / Comment(s): MULT MOLLUSCUM CONTAGIOSUM TO VAGINAL AREA. NO MENSES SINCE CHILDBIRTH, DEPO INJ 02/2013. History of Any Multi-Drug Resistant Organisms: MRSA Date of last positivie culture/infection: 06/08/17 MDRO Source:: AXILLA bilateral and right thigh Past Surgical History: Adenoidectomy, Cholecystectomy, Orthopedic Surgery, Tonsillectomy Additional Past Surgical History / Comment(s): BMT; EXC LT BUNION; WISDOM TEETH REMOVED; COLONOSCOPY/EGD Past Anesthesia/Blood Transfusion Reactions: No Reported Reaction Smoking Status: Never smoker - Past Family History Father Additional Family Medical History / Comment(s): neuropathy Medications and Allergies Home Medications Medication Instructions Recorded Confirmed Type Pnv No.95/Ferrous Fum/Folic AC 1 tab PO DAILY 05/16/20 01/10/22 History [ Multivitamin Tablet] Aspirin [Adult Low Dose Aspirin EC] 81 mg PO DAILY 01/09/22 01/10/22 History Cetirizine HCl [Zyrtec] 10 tab PO DAILY 01/09/22 01/10/22 History Cyanocobalamin (Vitamin B-12) 5,000 tab PO DAILY 01/09/22 01/10/22 History [Vitamin B12] Iron 18 mg PO DAILY 01/09/22 01/10/22 History Allergies Allergy/AdvReac Type Severity Reaction Status Date / Time No Known Allergies Allergy Verified 01/10/22 14:37 Exam Intake and Output 01/10/22 01/10/22 01/10/22 06:59 14:59 22:59 Other: Weight 86.183 kg See dictation under HPI please Assessment and Plan Assessment: 39 week intrauterine , spontaneous amniorrhexis, very early labor. All signs reassuring. Plan: Oxytocin per hospital protocol. Close maternal and surveillance. Analgesic options reviewed. Anticipate normal spontaneous vaginal delivery. Time with Patient: Less than 30
[2022-01-10] MEDS ORDERED: OXYTOCIN 10 UNIT/ML 1 ML VIAL IM PRN (15:40)
[2022-01-10] MEDS ORDERED: LIDOCAINE 1% (PF) 10 MG/ML (30 ML SDV) SQ PRN (15:40)
[2022-01-10] MEDS ORDERED: METHYLERGONOVINE 0.2 MG/ML 1 ML AMP IM PRN (15:40)
[2022-01-10] MEDS ORDERED: TERBUTALINE 1 MG/ML VIAL SQ PRN (15:40)
[2022-01-10] MEDS ORDERED: CARBOPROST TROMETHAMINE 250 MCG/ML 1 ML AMP IM PRN (15:40)
[2022-01-10] MEDS ORDERED: OXYTOCIN 30 UNITS/500 ML NS 30 UNIT in SALINE 1 500ML.BAG IV SCH (15:45)
[2022-01-10] MEDS: LACTATED RINGERS 1,000 ML IV SCH ×3 (15:49→18:07)
[2022-01-10 15:51] LABS: Basophils % (A) 0 %; Eosinophils % (A) 0 %; HCT 38.7 % (34.0-46.0); HGB 13.6 gm/dL (11.4-16.0); Lymphocytes # (A) 1.7 k/uL (1.0-4.8); Lymphocytes % (A) 16 %; MCH 33.3 pg (25.0-35.0); MCHC 35.1 g/dL (31.0-37.0); Mean Platelet Volume 7.8; Monocytes # (A) 0.4 k/uL (0-1.0); Monocytes % (A) 4 %; Neutrophils # (A) 8.4 k/uL (1.3-7.7); Neutrophils % (A) 78 %; Platelet Count 184 k/uL (150-450); RBC 4.07 m/uL (3.80-5.40); RDW 13.3 % (11.5-15.5); WBC 10.7 k/uL (3.8-10.6)
[2022-01-10] MEDS ORDERED: ROPIVACAINE 5MG/ML 20ML VIAL ONE (17:03)
[2022-01-10] MEDS ORDERED: fentaNYL (PF) 50 MCG/ML 5 ML AMP ONE (17:03)
[2022-01-10] MEDS ORDERED: SODIUM CHLORIDE 0.9% 100 ML BAG ONE (17:03)
[2022-01-10] MEDS ORDERED: diphenhydrAMINE 25 MG CAP PO PRN (20:03)
[2022-01-10] MEDS ORDERED: HYDROCORTISONE 2.5% RECTAL CREAM 30 GM TUBE RECTAL PRN (20:03)
[2022-01-10] MEDS ORDERED: diphenhydrAMINE 50 MG CAP PO PRN (20:03)
[2022-01-10] MEDS ORDERED: diphenhydrAMINE 50 MG/ML 1 ML VIAL IVP PRN ×2 (20:03)
[2022-01-10] MEDS ORDERED: ZOLPIDEM 5 MG TAB PO PRN (20:03)
[2022-01-10] MEDS ORDERED: LANOLIN CREAM 5 GM TUBE TOPICAL PRN (20:03)
[2022-01-10] MEDS ORDERED: BENZOCAINE/MENTHOL SPRAY 1 GM/SPRAY AEROSOL TOPICAL PRN (20:03)
[2022-01-10] MEDS ORDERED: SIMETHICONE 80 MG CHEWABLE PO PRN (20:03)
--- NOTE | 2022-01-10 20:04 | P.PROBDLV ---
Vaginal Delivery Note - . Vaginal Delivery Note: This is a 31-year-old white female 3 para 2001 EDC 01/17/2022 at 39 weeks gestation who presented with spontaneous amniorrhexis, clear fluid which occurred at approximately 10:30 this morning. Fetus is been active throughout the . Blood type O positive. Rubella status immune. Group B strep cultures negative. Please see dictated history and physical for details. Patient was admitted, oxytocin augmentation was started and titrated per hospital protocol. She requested and received an epidural. She became completely dilated and 1933 hrs. Perineal body was prepped and draped in usual sterile fashion. With excellent maternal expulsive efforts the infant head delivered occiput anterior and restituted accordingly. There was no nuchal cord noted. The right or anterior shoulder was delivered easily from underneath the pubic symphysis at which time the oropharynx, nasopharynx, and external nares were all bulb suctioned. Patient was officially delivered of a liveborn female infant at 1949 hrs. Placenta delivered spontaneously, it was inspected and noted to be intact with trivascular cord at 1952 hrs. Careful inspection of the cervix, vagina, perineum, periurethral, and perirectal areas revealed no lacerations or defects. Total estimated blood loss 200 mL's. Fundus is firm and in the midline upon completion of delivery. Infant weighs 7 lbs. 15 oz. or 01/15/2005 grams. Patient and her family are allowed to begin the bonding experience in the LDR.
[2022-01-10] MEDS: IBUPROFEN 600 MG TAB PO PRN (21:31)
[2022-01-11] MEDS: IBUPROFEN 600 MG TAB PO PRN ×3 (04:03→18:40)
[2022-01-11] MEDS: LACTATED RINGERS 1,000 ML IV SCH (04:28)
[2022-01-11 07:26] LABS: Basophils % (A) 0 %; Eosinophils # (A) 0.1 k/uL (0-0.7); Eosinophils % (A) 1 %; HGB 12.4 gm/dL (11.4-16.0); Lymphocytes % (A) 8 %; MCH 32.5 pg (25.0-35.0); MCHC 33.6 g/dL (31.0-37.0); MCV 96.7 fL (80.0-100.0); Mean Platelet Volume 8.1; Monocytes # (A) 0.7 k/uL (0-1.0); Monocytes % (A) 5 %; Neutrophils # (A) 11.8 k/uL (1.3-7.7); Neutrophils % (A) 86 %; Platelet Count 169 k/uL (150-450); RBC 3.83 m/uL (3.80-5.40); RDW 12.8 % (11.5-15.5); WBC 13.7 k/uL (3.8-10.6)
--- NOTE | 2022-01-11 07:52 | P.DS ---
Providers Date of admission: 01/10/22 15:00 Expected date of discharge: 01/11/22 Attending physician: Joseline Dejesus Primary care physician: Stated None Hospital Course: This is a 31-year-old female 3 para 2001 EDC 01/17/2022 at 39 weeks gestation who presented from home with spontaneous amniorrhexis. Rupee strep cultures negative, blood type O+, rubella status immune. Please see dictated history and physical for details. was unremarkable. Patient went on to deliver vaginally a liveborn female with scores of 8 and 9 at one and 5 minutes respectively. Infant weighed 7 lbs. 15 oz. or 01/15/2005 grams. This was with the aid of oxytocin augmentation and epidural analgesia. No stitches were encountered. Estimated blood loss 200 mL's. Please see dictated delivery note for details. This morning the patient and her are both doing well. Patient is voiding, ambulating, passing flatus without difficulty. Vital signs are stable and she is afebrile. She is not breast-feeding. Fundus is firm and in the midline, symmetric and 18 week size. Patient is judged to be in excellent condition for discharge home. She will follow-up with me in the office in 6 weeks. We have discussed contraceptive options. No intercourse for 6 weeks. She will call with any fevers shakes or chills, foul smelling or copious lochia, with the passage of large blood clots, with any pain not alleviated by ov [id number] products, or indeed with any concerns. Assessment: Doing well day #1 Patient Condition at Discharge: Good Plan - Discharge Summary Discharge Rx Participant: No New Discharge Prescriptions: No Action Pnv No.95/Ferrous Fum/Folic AC [ Multivitamin Tablet] 1 tab PO DAILY Aspirin [Adult Low Dose Aspirin EC] 81 mg PO DAILY Iron 18 mg PO DAILY Cyanocobalamin (Vitamin B-12) [Vitamin B12] 5,000 tab PO DAILY Cetirizine HCl [Zyrtec] 10 tab PO DAILY Discharge Medication List Pnv No.95/Ferrous Fum/Folic AC [ Multivitamin Tablet] 1 tab PO DAILY 05/16/20 [History] Aspirin [Adult Low Dose Aspirin EC] 81 mg PO DAILY 01/09/22 [History] Cetirizine HCl [Zyrtec] 10 tab PO DAILY 01/09/22 [History] Cyanocobalamin (Vitamin B-12) [Vitamin B12] 5,000 tab PO DAILY 01/09/22 [History] Iron 18 mg PO DAILY 01/09/22 [History] Follow up Appointment(s)/Referral(s): Joseline Dejesus MD [STAFF PHYSICIAN] - 6 Weeks Discharge Disposition: HOME SELF-CARE
[2022-01-11] MEDS: ACETAMINOPHEN TAB 325 MG TAB PO PRN ×2 (08:06→15:15)
[2022-01-11] MEDS: SENNOSIDES-DOCUSATE SODIUM 1 EACH TAB PO SCH ×2 (08:07→22:10)
[2022-01-11 19:26] LABS: Glucose,Whole Blood 104 mg/dL (75-99)
[2022-01-11 21:57] VITALS: BP 115/66; PULSE 95; RESP 18; TEMP 97.8
== END 2022-01-11 21:00 | disposition home or self-care (01) | DRG 807 ==
LOC: FBPOP 14:16 → 4FBP 15:00
PROVIDERS: ADMIT Obstetrics & Gynecology; ATTEND Obstetrics & Gynecology
PROC: 00HU33Z Insertion of Infusion Device into Spinal Canal, Percutaneous Approach (ICD-10-PCS; principal; 2022-01-10)
PROC: 10E0XZZ Delivery of Products of Conception, External Approach (ICD-10-PCS; principal; 2022-01-10)
PROC: 3E0R3NZ Introduction of Analgesics, Hypnotics, Sedatives into Spinal Canal, Percutaneous Approach (ICD-10-PCS; principal; 2022-01-10)
DX: O80 Encounter for full-term uncomplicated delivery (principal); Z37.0 Single live birth; Z3A.39 39 weeks gestation of pregnancy; Z79.82 Long term (current) use of aspirin; Z79.899 Other long term (current) drug therapy; Z87.891 Personal history of nicotine dependence; Z90.49 Acquired absence of other specified parts of digestive tract; Z87.19 Personal history of other diseases of the digestive system; Z90.89 Acquired absence of other organs; Z87.39 Personal history of other diseases of the musculoskeletal system and connective tissue; Z86.69 Personal history of other diseases of the nervous system and sense organs; Z86.59 Personal history of other mental and behavioral disorders; Z98.818 Other dental procedure status; Z86.19 Personal history of other infectious and parasitic diseases; Z86.14 Personal history of Methicillin resistant Staphylococcus aureus infection; Z98.890 Other specified postprocedural states; Z82.0 Family history of epilepsy and other diseases of the nervous system
CPT/HCPCS: 59025; 84112; 85025; 86850; 86900; 86901; 99213

== ENCOUNTER 2022-01-17 12:19 | Emergency (ER) | payer OTHER ==
--- NOTE | 2022-01-17 13:34 | ED ---
General Adult HPI - General Chief complaint: Abdominal Pain Stated complaint: Post- Complications Time Seen by Provider: 01/17/22 12:40 Source: patient, RN notes reviewed, old records reviewed Mode of arrival: ambulatory Limitations: no limitations - History of Present Illness Initial comments: This is a 31-year-old female who had a vaginal delivery 1 week ago she states was uncomplicated. Patient states since that time she's been not feeling well having some right-sided abdominal left-sided abdominal pain some vaginal discharge which she states was bleeding and is turned into dark discharge and getting a little heavier. Patient states she also has been spiking a fever last night she had 103 fever that went from 6 PM to 6 AM this morning and Tylenol and Motrin didn't reduce the fever. Patient denies any nausea vomiting diarrhea. Patient denies any cough patient is difficult to breathing or shortness of breath. Patient denies any back pain. Patient states she has not had any significant swelling in her legs. - Related Data Home Medications Medication Instructions Recorded Confirmed Pnv No.95/Ferrous Fum/Folic AC 1 tab PO DAILY 05/16/20 01/17/22 [ Multivitamin Tablet] Previous Rx's Medication Instructions Recorded Amoxicillin/Potassium Clav 1 each PO Q12HR #28 tab 01/17/22 [Augmentin 875-125 Tablet] Allergies Allergy/AdvReac Type Severity Reaction Status Date / Time No Known Allergies Allergy Verified 01/17/22 13:41 Review of Systems ROS Statement: Those systems with pertinent positive or pertinent negative responses have been documented in the HPI. ROS Other: All systems not noted in ROS Statement are negative. Past Medical History Past Medical History: No Reported History Additional Past Medical History / Comment(s): MULT MOLLUSCUM CONTAGIOSUM TO VAGINAL AREA. NO MENSES SINCE CHILDBIRTH, DEPO INJ 02/2013. History of Any Multi-Drug Resistant Organisms: MRSA Date of last positivie culture/infection: 06/08/17 MDRO Source:: AXILLA bilateral and right thigh Past Surgical History: Adenoidectomy, Cholecystectomy, Orthopedic Surgery, Tonsillectomy Additional Past Surgical History / Comment(s): BMT; EXC LT BUNION; WISDOM TEETH REMOVED; COLONOSCOPY/EGD Past Anesthesia/Blood Transfusion Reactions: No Reported Reaction Past Psychological History: Anxiety, Depression Smoking Status: Never smoker Past Alcohol Use History: Occasional Past Drug Use History: None Reported - Past Family History Father Additional Family Medical History / Comment(s): neuropathy General Exam - General Exam Comments Initial Comments: GENERAL: Patient is well-developed and well-nourished. Patient is nontoxic and well- hydrated and is in mild distress. ENT: Neck is soft and supple. No significant lymphadenopathy is noted. Oropharynx is clear. Moist mucous membranes. Neck has full range of motion without eliciting any pain. EYES: The sclera were anicteric and conjunctiva were pink and moist. Extraocular movements were intact and pupils were equal round and reactive to light. Eyelids were unremarkable. PULMONARY: Unlabored respirations. Good breath sounds bilaterally. No audible rales rhonchi or wheezing was noted. CARDIOVASCULAR: There is a regular rate and rhythm without any murmurs gallops or rubs. ABDOMEN: She has minimal suprapubic abdominal tenderness. SKIN: Skin is clear with no lesions or rashes and otherwise unremarkable. PELVIC: I did a speculum exam the os was closed however there was some discharge and it was there was blood-tinged but milky opaque appearance. NEUROLOGIC: Patient is alert and oriented x3. Cranial nerves II through XII are grossly intact. Motor and sensory are also intact. Normal speech, volume and content. Symmetrical smile. MUSCULOSKELETAL: Normal extremities with adequate strength and full range of motion. No lower extremity swelling or edema. No calf tenderness. LYMPHATICS: No significant lymphadenopathy is noted PSYCHIATRIC: Normal psychiatric evaluation. Limitations: no limitations Course Vital Signs 01/17/22 01/17/22 01/17/22 12:37 13:29 14:00 Temperature 98.7 F Pulse Rate 103 H 86 83 Respiratory 20 18 16 Rate Blood Pressure 192/68 107/83 110/65 O2 Sat by Pulse 112 H 100 Oximetry 01/17/22 01/17/22 01/17/22 14:15 15:00 16:21 Temperature 98.9 F 102.8 F H 100.3 F H Pulse Rate 85 100 110 H Respiratory 18 18 16 Rate Blood Pressure 109/66 115/79 117/71 O2 Sat by Pulse 99 100 98 Oximetry 01/17/22 17:09 Temperature 99.1 F Pulse Rate 101 H Respiratory 18 Rate Blood Pressure 103/59 O2 Sat by Pulse Oximetry Medical Decision Making - Medical Decision Making EKG shows sinus rhythm at 85 bpm AK interval 236 QRS is 82 QT interval 320 QTC is 362. Patient's EKG shows no ST segment elevation or depression. I spoke with Dr. Dejesus and reviewed the vitals as well as the labs. Dr. Dejesus was okay with the patient going home on Augmentin to follow-up with her next week and the patient was instructed if symptoms were to worsen at all she was to come back to the emergency department immediately. I spoke with Dr. Dejesus patient's temperature spiked to 102.8 I've then gave the patient Motrin and Tylenol liter of fluid and checked her vitals after an hour and a half. Patient's temperature was down to 99.1 and she was asymptomatic from heart rate was 101. I called Dr. Dejesus to update her on the vitals and she again wanted the patient to be discharged home to follow-up with strict instructions to hydrate take Motrin and Tylenol and to return if there is any worsening symptoms. - Lab Data Result diagrams: 01/17/22 13:31 01/17/22 13:31 Lab Results 01/17/22 01/17/22 01/17/22 Range/Units 13:31 13:31 13:31 WBC 12.8 H (3.8-10.6) k/uL RBC 4.32 (3.80-5.40) m/uL Hgb 13.7 (11.4-16.0) gm/dL Hct 41.3 (34.0-46.0) % MCV 95.7 (80.0-100.0) fL MCH 31.8 (25.0-35.0) pg MCHC 33.2 (31.0-37.0) g/dL RDW 12.3 (11.5-15.5) % Plt Count 160 (150-450) k/uL MPV 7.2 Neutrophils % 91 % Lymphocytes % 5 % Monocytes % 4 % Eosinophils % 0 % Basophils % 0 % Neutrophils # 11.6 H (1.3-7.7) k/uL Lymphocytes # 0.6 L (1.0-4.8) k/uL Monocytes # 0.5 (0-1.0) k/uL Eosinophils # 0.0 (0-0.7) k/uL Basophils # 0.0 (0-0.2) k/uL PT 10.4 (9.0-12.0) sec INR 0.9 (<1.2) APTT 26.0 (22.0-30.0) sec Sodium (137-145) mmol/L Potassium (3.5-5.1) mmol/L Chloride (98-107) mmol/L Carbon Dioxide (22-30) mmol/L Anion Gap mmol/L BUN (7-17) mg/dL Creatinine (0.52-1.04) mg/dL Est GFR (CKD-EPI)AfAm (>60 ml/min/1.73 sqM) Est GFR (CKD-EPI)NonAf (>60 ml/min/1.73 sqM) Glucose (74-99) mg/dL Plasma Lactic Acid Kvng (0.7-2.0) mmol/L Uric Acid (3.7-7.4) mg/dL Calcium (8.4-10.2) mg/dL Total Bilirubin (0.2-1.3) mg/dL AST (14-36) U/L ALT (4-34) U/L Alkaline Phosphatase (38-126) U/L Lactate Dehydrogenase (313-618) U/L Total Protein (6.3-8.2) g/dL Albumin (3.5-5.0) g/dL Urine Color Urine Appearance (Clear) Urine pH (5.0-8.0) Ur Specific [place] (1.001-1.035) Urine Protein (Negative) Urine Glucose (UA) (Negative) Urine Ketones (Negative) Urine Blood (Negative) Urine Nitrite (Negative) Urine Bilirubin (Negative) Urine Urobilinogen (<2.0) mg/dL Ur Leukocyte Esterase (Negative) Urine RBC (0-5) /hpf Urine WBC (0-5) /hpf Ur Squamous Epith Cells (0-4) /hpf Urine Mucus (None) /hpf Coronavirus (PCR) Not Detected (Not Detectd) 01/17/22 01/17/22 01/17/22 Range/Units 13:31 13:31 15:31 WBC (3.8-10.6) k/uL RBC (3.80-5.40) m/uL Hgb (11.4-16.0) gm/dL Hct (34.0-46.0) % MCV (80.0-100.0) fL MCH (25.0-35.0) pg MCHC (31.0-37.0) g/dL RDW (11.5-15.5) % Plt Count (150-450) k/uL MPV Neutrophils % % Lymphocytes % % Monocytes % % Eosinophils % % Basophils % % Neutrophils # (1.3-7.7) k/uL Lymphocytes # (1.0-4.8) k/uL Monocytes # (0-1.0) k/uL Eosinophils # (0-0.7) k/uL Basophils # (0-0.2) k/uL PT (9.0-12.0) sec INR (<1.2) APTT (22.0-30.0) sec Sodium 138 (137-145) mmol/L Potassium 3.9 (3.5-5.1) mmol/L Chloride 108 H (98-107) mmol/L Carbon Dioxide 21 L (22-30) mmol/L Anion Gap 9 mmol/L BUN 15 (7-17) mg/dL Creatinine 0.72 (0.52-1.04) mg/dL Est GFR (CKD-EPI)AfAm >90 (>60 ml/min/1.73 sqM) Est GFR (CKD-EPI)NonAf >90 (>60 ml/min/1.73 sqM) Glucose 81 (74-99) mg/dL Plasma Lactic Acid Kvng 0.6 L (0.7-2.0) mmol/L Uric Acid 4.4 (3.7-7.4) mg/dL Calcium 8.7 (8.4-10.2) mg/dL Total Bilirubin 0.6 (0.2-1.3) mg/dL AST 29 (14-36) U/L ALT 29 (4-34) U/L Alkaline Phosphatase 128 H (38-126) U/L Lactate Dehydrogenase 700 H (313-618) U/L Total Protein 6.4 (6.3-8.2) g/dL Albumin 3.4 L (3.5-5.0) g/dL Urine Color Yellow Urine Appearance Clear (Clear) Urine pH 6.0 (5.0-8.0) Ur Specific [place] 1.034 (1.001-1.035) Urine Protein 1+ H (Negative) Urine Glucose (UA) Negative (Negative) Urine Ketones 2+ H (Negative) Urine Blood Large H (Negative) Urine Nitrite Negative (Negative) Urine Bilirubin Negative (Negative) Urine Urobilinogen <2.0 (<2.0) mg/dL Ur Leukocyte Esterase Trace H (Negative) Urine RBC >182 H (0-5) /hpf Urine WBC 11 H (0-5) /hpf Ur Squamous Epith Cells 1 (0-4) /hpf Urine Mucus Moderate H (None) /hpf Coronavirus (PCR) (Not Detectd) Disposition Clinical Impression: Endometritis affecting Disposition: HOME SELF-CARE Condition: Good Prescriptions: Amoxicillin/Potassium Clav [Augmentin 875-125 Tablet] 1 each PO Q12HR #28 tab Is patient prescribed a controlled substance at d/c from ED?: No Referrals: None,Stated [Primary Care Provider] - 1-2 days Time of Disposition: 17:26
[2022-01-17] MEDS ORDERED: AMPICILLIN-SULBACTAM 3 GM in SODIUM CHLORIDE 0.9% 100 ML IVPB STA (13:46)
[2022-01-17 13:49] LABS: Basophils % (A) 0 %; Eosinophils % (A) 0 %; HCT 41.3 % (34.0-46.0); HGB 13.7 gm/dL (11.4-16.0); Lymphocytes # (A) 0.6 k/uL (1.0-4.8); Lymphocytes % (A) 5 %; MCH 31.8 pg (25.0-35.0); MCHC 33.2 g/dL (31.0-37.0); MCV 95.7 fL (80.0-100.0); Mean Platelet Volume 7.2; Monocytes # (A) 0.5 k/uL (0-1.0); Monocytes % (A) 4 %; Neutrophils # (A) 11.6 k/uL (1.3-7.7); Neutrophils % (A) 91 %; Platelet Count 160 k/uL (150-450); RBC 4.32 m/uL (3.80-5.40); RDW 12.3 % (11.5-15.5); WBC 12.8 k/uL (3.8-10.6)
[2022-01-17 14:02] LABS: INR 0.9 (<1.2); Prothrombin Time 10.4 sec (9.0-12.0)
[2022-01-17 14:05] LABS: ALT 29 U/L (4-34); AST 29 U/L (14-36); African American GFR (CKD) >90 (>60 ml/min/1.73 sqM); Albumin 3.4 g/dL (3.5-5.0); Alkaline Phosphatase 128 U/L (38-126); Anion Gap 9 mmol/L; Blood Urea Nitrogen 15 mg/dL (7-17); Calcium 8.7 mg/dL (8.4-10.2); Carbon Dioxide 21 mmol/L (22-30); Chloride 108 mmol/L (98-107); Glucose 81 mg/dL (74-99); LDH 700 U/L (313-618); Non-African American GFR(CKD) >90 (>60 ml/min/1.73 sqM); Potassium 3.9 mmol/L (3.5-5.1); Sodium 138 mmol/L (137-145); Total Bilirubin 0.6 mg/dL (0.2-1.3); Total Protein 6.4 g/dL (6.3-8.2); Uric Acid 4.4 mg/dL (3.7-7.4)
--- NOTE | 2022-01-17 14:29 | US ---
EXAMINATION TYPE: US pelvic complete DATE OF EXAM: 01/17/2022 COMPARISON: Prior pelvic ultrasound dated 05/12/2021 CLINICAL HISTORY: 1 week rule out retained products. 1 week , fever, cramping, i ncreased bleeding TECHNIQUE: . Transabdominal sonographic images of the pelvis were acquired. Date of LMP: Unknown EXAM MEASUREMENTS: Uterus: 13.1 x 7.8 x 8.8 cm Endometrial Stripe: Not well defined Right Ovary: 3.2 x 1.9 x 1.6 cm Left Ovary: 2.5 x 1.4 x 1.8 cm 1. Uterus: enlarged uterus 2. Endometrium: small amount of fluid seen, endometrium somewhat poorly defined, color flow is prese nt along the myometrium 3. Right Ovary: wnl 4. Left Ovary: wnl 5. Bilateral Adnexa: wnl 6. Posterior cul-de-sac: wnl IMPRESSION: Correlate for possible endometritis
[2022-01-17] MEDS ORDERED: IBUPROFEN 600 MG TAB PO STA (15:09)
[2022-01-17] MEDS ORDERED: ACETAMINOPHEN TAB 500 MG TAB PO STA (15:09)
[2022-01-17] MEDS ORDERED: SODIUM CHLORIDE 0.9% 1,000 ML IV ONE (15:12)
[2022-01-17 16:47] LABS: Appearance,Urine Clear (Clear); Bilirubin,Urine Negative (Negative); Blood,Urine Large (Negative); Color,Urine Yellow; Glucose,Urine (UA) Negative (Negative); Leukocyte Esterase,Urine Trace (Negative); Mucus,Urine Moderate /hpf; Nitrite,Urine Negative (Negative); Protein,Urine 1+ (Negative); RBC,Urine >182 /hpf (0-5); Specific Gravity,Urine 1.034 (1.001-1.035); Squamous Epithelial Cell,Urine 1 /hpf (0-4); Urobilinogen,Urine <2.0 mg/dL (<2.0); WBC,Urine 11 /hpf (0-5)
[2022-01-17 16:48] LABS: Ketones,Urine 2+ (Negative)
[2022-01-17 17:10] VITALS: BP 103/59; PULSE 101; RESP 18; TEMP 99.1
== END 2022-01-17 17:42 | disposition home or self-care (01) ==
LOC: EC 12:19
DX: O86.12 Endometritis following delivery (principal); Z20.822 Contact with and (suspected) exposure to COVID-19
CPT/HCPCS: 36415; 93005; 80053; 83605; 83615; 84550; 85025; 85610; 85730; 81001; 87040; 87086; 87635; 76856; 99284; 96365; 96361; J0295